=== PATIENT | male | born 1965 | race Caucasian/White ===

== ENCOUNTER 2016-08-12 17:18 | Emergency (ER) | payer SELFPAY ==
[~2016-08-12] VITALS: Ht 182.9 cm; Wt 100.0 kg
[~2016-08-12 17:18] MED LIST: ASPI81TA82 PO; CARB200T14 PO; LIDO5DIS35 TD; METO50TA PO; NITR.4 SL; NORV5TAB PO; RIVA20 PO
[2016-08-12 17:20] VITALS: BP 159/93; PULSE 96; RESP 12; TEMP 98.2; O2SAT 99
[2016-08-12] MEDS ORDERED: MUPI2%T TOPICAL (19:10)
[2016-08-12] MEDS ORDERED: BACT800T5 PO (19:10)
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
== END 2016-08-12 19:41 | disposition home or self-care (01) ==
LOC: NEPB 17:18
DX: S50.861A Insect bite (nonvenomous) of right forearm, initial encounter (principal); L03.113 Cellulitis of right upper limb; F17.210 Nicotine dependence, cigarettes, uncomplicated; I10 Essential (primary) hypertension; E78.00 Pure hypercholesterolemia, unspecified; J44.9 Chronic obstructive pulmonary disease, unspecified; I50.9 Heart failure, unspecified; W57.XXXA Bitten or stung by nonvenomous insect and other nonvenomous arthropods, initial encounter; Z79.01 Long term (current) use of anticoagulants
CPT/HCPCS: 99283

== ENCOUNTER 2016-08-19 13:26 | Inpatient (IN) | payer SELFPAY ==
[2016-08-19] VITALS (10 sets, daily range): BP systolic 111–131; BP diastolic 62–84; PULSE 75–123; RESP 20–26; TEMP 98–103.2; O2SAT 93–99
[~2016-08-19] VITALS: Ht 182.9 cm; Wt 115.9 kg
[~2016-08-19 13:26] MED LIST changes: -ASPI81TA82 PO; +BACT800T5 PO; -CARB200T14 PO; -LIDO5DIS35 TD; -METO50TA PO; +MUPI2%T TOPICAL; -NITR.4 SL; -NORV5TAB PO; -RIVA20 PO
[2016-08-19] MEDS ORDERED: SODIUM CHLOR 0.9% 1000 ML INJ 1,000 ML IV ONE ×3 (13:45→15:00)
[2016-08-19] MEDS ORDERED: AZTREONAM INJ 1,000 MG in SODIUM CHLORIDE 0.9% INJ 100 ML IV ONE (13:45)
[2016-08-19] MEDS ORDERED: SODIUM CHLORIDE 0.9% FLUSH 5 ML FLUSH IVF PRN (13:45)
[2016-08-19] MEDS ORDERED: VANCOMYCIN INJ 1,000 MG in SODIUM CHLOR 0.9% 250 ML INJ 250 ML IV ONE (13:45)
[2016-08-19 14:20] LABS: AUTOMATED NEUTROPHIL # 20.5 TH/MM3 (1.8-7.7); BASOPHIL # 0.1 TH/MM3 (0-0.2); BASOPHIL % 0.3 % (0.0-2.0); HEMATOCRIT 43.1 % (39.0-51.0); HEMO FLAGS DIFF FINAL; LYMPH % 5.6 % (9.0-44.0); LYMPHOCYTE # 1.3 TH/MM3 (1.0-4.8); MEAN CELL VOLUME 91.3 FL (80.0-100.0); MEAN CORPUSCULAR HEMOGLOBIN 31.6 PG (27.0-34.0); MEAN CORPUSCULAR HGB CONC 34.6 % (32.0-36.0); MONO % 5.2 % (0.0-8.0); NEUT % 88.9 % (16.0-70.0); PLATELET COUNT 198 TH/MM3 (150-450); RED BLOOD COUNT 4.72 MIL/MM3 (4.50-5.90); RED CELL DISTRIBUTION WIDTH 13.4 % (11.6-17.2)
[2016-08-19 14:27] LABS: APTT (PATIENT) 27.8 SEC (24.3-30.1); PROTHROMBIN TIME - PATIENT 11.1 SEC (9.8-11.6)
[2016-08-19 14:33] LABS: ANION GAP 7 MEQ/L (5-15); BICARBONATE 25.6 MEQ/L (21.0-32.0); BLOOD UREA NITROGEN 11 MG/DL (7-18); CHLORIDE 103 MEQ/L (98-107); GLOMERULAR FILTRATION RATE 61 ML/MIN (>89); MAGNESIUM 1.7 MG/DL (1.5-2.5); POTASSIUM 3.8 MEQ/L (3.5-5.1); SODIUM (NA) 136 MEQ/L (136-145)
--- NOTE | 2016-08-19 14:33 | RADRPT ---
EXAM DATE/TIME: 08/19/2016 13:45 [facility] COMPARISON: CHEST SINGLE AP, June 24, 2015, 16:07. INDICATIONS : Chest pain, cough and fever. MEDICAL HISTORY : None. SURGICAL HISTORY : None. ENCOUNTER: Initial ACUITY: 3 days PAIN SCORE: 8/10 LOCATION: Bilateral chest FINDINGS: A single view of the chest demonstrates the lungs to be symmetrically aerated without evidence of mas s, infiltrate or effusion. The cardiomediastinal contours are unremarkable. Osseous structures are intact. CONCLUSION: No acute disease. Corie Simon MD on August 19, 2016 at 14:32 Board Certified Radiologist. This report was verified electronically.
[2016-08-19 14:37] LABS: CREATINE KINASE 310 U/L (39-308)
[2016-08-19 14:49] LABS: CKMB LESS THAN 0.5 NG/ML (0.5-3.6)
[2016-08-19] MEDS ORDERED: ACETAMINOPHEN 325 MG TAB PO ONE (15:00)
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
[2016-08-19] MEDS ORDERED: ACETAMINOPHEN 325 MG TAB PO PRN (16:00)
[2016-08-19] MEDS ORDERED: NALOXONE HCL 0.4 MG/ML AMP IV PRN (16:00)
[2016-08-19] MEDS ORDERED: ONDANSETRON HCL 4 MG/2 ML VIAL IVP PRN (16:00)
[2016-08-19] MEDS ORDERED: SODIUM CHLORIDE 0.9% FLUSH 5 ML FLUSH FLUSH PRN (16:00)
[2016-08-19] MEDS ORDERED: RESP: ALBUTEROL 2.5 MG/3 ML NEB (PRN) INH (16:00)
[2016-08-19] MEDS ORDERED: DEXTROSE 50% IN WATER 50 ML VIAL(D50) IV PUSH PRN (16:15)
[2016-08-19] MEDS ORDERED: GLUCAGON 1 MG/ML VIAL OTHER PRN (16:15)
--- NOTE | 2016-08-19 16:15 | HHI.HP ---
[facility] Service Family Medicine Primary Care Physician No Primary Care Physician Admission Diagnosis Sepsis Diagnoses: Chief Complaint: chest pain International Travel<30 Days: No Contact w/Intl Traveler<30days: No Known Affected Area: No History of Present Illness Patient is a 50-year-old male with an apparent past medical history significant for CAD s/p stent, diverticulosis and gastric ulcer who presents today for chest pain. Patient states that he has been having chest pain for the past 2-3 days. The pain is progressively worsening. Located in the epigastric region nonradiating. It's a sharp, stabbing, constant pain. He has not been able to tolerate oral intake for the past 34 days. He states every time he tries to eat, he can't keep the food down. He has been able to keep liquids down. Eating makes his pain worse. He thinks that moving around might help the pain. Patient states he has had this pain before in the past and he was hospitalized for it but he is unsure what his diagnosis was. His last bowel movement was a couple days ago and runny. He denies any black or bloody stool. He endorses pain with deep inspiration and has had a productive cough that is a little worse than his baseline cough. He has had to cut down from smoking 1 pack per day to smoking half a pack per day due to this chest pain. He denies any alcohol or illicit drug use. Of note, he drinks 34 pots of coffee per day. Review of Systems Constitutional: COMPLAINS OF: Fever, Chills, Change in appetite Eyes: DENIES: Blurred vision Ears, nose, mouth, throat: DENIES: Throat pain Respiratory: COMPLAINS OF: Cough, Wheezing, Sputum production, Shortness of breath (occasional) Cardiovascular: COMPLAINS OF: Chest pain, DENIES: Syncope, Lower Extremity Edema, Orthopnea Gastrointestinal: COMPLAINS OF: Abdominal pain, Constipation, Nausea, Vomiting , DENIES: Black stools, Bloody stools Genitourinary: DENIES: Hematuria, Dysuria Musculoskeletal: DENIES: Back pain Integumentary: DENIES: Rash Hematologic/lymphatic: DENIES: Bruising Neurologic: COMPLAINS OF: Headache Psychiatric: COMPLAINS OF: Depression Past Family Social History Past Medical History CAD HLD HTN Hx of DVT Seizure disorder MDD Gastric Ulcer Diverticulosis Past Surgical History History limited as patient is poor historian. Per chart review: Coronary stent Joint Replacement Back surgery Reported Medications Reported Meds & Active Scripts Active Allergies: Coded Allergies: Aspirin (Verified Allergy, Severe, Anaphylaxis, 08/19/16) Bee Sting (Verified Allergy, Severe, Anaphylaxis, 08/19/16) Iodine (Verified Allergy, Severe, Anaphylaxis, 08/19/16) Penicillin (Verified Allergy, Severe, Anaphylaxis, 08/19/16) Phenobarbital (Verified Allergy, Severe, INCREASED SEIZURES, 08/19/16) Seafood (Verified Allergy, Severe, Anaphylaxis, 08/19/16) Active Ordered Medications Current Medications Medications (Trade) Dose Ordered Sig/Mikey Route Start Time Stop Time Status Last Admin IV Flush 2 ml 2 ml UNSCH PRN IVF 08/19/16 13:45 (NS 1000 ml Inj) 1,000 ml @ 160 mls/hr Q6H15M IV 08/19/16 15:51 UNV (NS Flush) 2 ml UNSCH PRN FLUSH 08/19/16 16:00 UNV (NS Flush) 2 ml BID FLUSH 08/19/16 21:00 UNV (Tylenol) 650 mg Q4H PRN PO 08/19/16 16:00 UNV (Zofran Inj) 4 mg Q6H PRN IVP 08/19/16 16:00 UNV (Narcan Inj) 0.4 mg UNSCH PRN IV 08/19/16 16:00 UNV (Protonix Inj) 40 mg DAILY IVP 08/19/16 16:00 UNV (D50w (Vial) Inj) 25 ml UNSCH PRN IV PUSH 08/19/16 16:15 UNV (Glucagon Inj) 1 mg UNSCH PRN OTHER 08/19/16 16:15 UNV Family History Patient is estranged from his family. Per chart review, his mother had stomach and brain cancer, father had heart disease and DM type 2, and son is healthy Social History Tobacco: smoked 1ppd x40 years, now smoking 1/2 ppd for past 2 weeks Alcohol: None Illicit Drug Use: None Lives in an apartment, cares for an 89 year old male. Spends time scavenging for scrap metal. Physical Exam Vital Signs Vital Signs Date Time Temp Pulse Resp B/P Pulse Ox O2 Delivery O2 Flow Rate FiO2 08/19/16 15:17 130/74 131/83 08/19/16 15:00 100.3 117 22 130/84 99 Nasal Cannula 2 08/19/16 13:43 99 Nasal Cannula 2 08/19/16 13:43 99 Nasal Cannula 2 08/19/16 13:39 99 Nasal Cannula 2 08/19/16 13:29 103.2 123 26 128/62 95 Physical Exam GENERAL: This is a well-nourished, well-developed obese male patient, who appears uncomfortable. Malodorous, unkempt. SKIN: Multiple abrasions and scattered lesions on upper and lower extremities. Nails are long and dirty. HEAD: Atraumatic. Normocephalic. No temporal or scalp tenderness. EYES: Pupils small but reactive to light. Extraocular motions intact. No scleral icterus. No injection or drainage. ENT: Nose without bleeding, purulent drainage or septal hematoma. Mucous membranes dry. Very poor dentition. NECK: Trachea midline. No JVD or lymphadenopathy. Supple, nontender, no meningeal signs. CARDIOVASCULAR: Tachycardic rate and regular rhythm without murmurs, gallops, or rubs. RESPIRATORY: Breath sounds equal bilaterally. Diffuse expiratory wheezes throughout lungs bilaterally. Bibasilar coarse breath sounds. Tachypnea. Becomes short of breath after a few words, however difficult to tell if this is from pain or increased respiratory effort. 98% on 2L NC. GASTROINTESTINAL: Abdomen firm, tender to palpation throughout abdomen, distended. Bowel sounds hypoactive. Unable to appreciate organomegaly or masses due to distention. No rebound tenderness. MUSCULOSKELETAL: Extremities without clubbing, cyanosis, or edema. No joint tenderness, effusion, or edema noted. No calf tenderness. NEUROLOGICAL: Awake but drowsy. Cranial nerves II through XII intact. Normal speech. Laboratory Laboratory Tests Test 08/19/16 14:00 White Blood Count 23.0 Red Blood Count 4.72 Hemoglobin 14.9 Hematocrit 43.1 Mean Corpuscular Volume 91.3 Mean Corpuscular Hemoglobin 31.6 Mean Corpuscular Hemoglobin 34.6 Concent Red Cell Distribution Width 13.4 Platelet Count 198 Mean Platelet Volume 9.8 Neutrophils (%) (Auto) 88.9 Lymphocytes (%) (Auto) 5.6 Monocytes (%) (Auto) 5.2 Eosinophils (%) (Auto) 0.0 Basophils (%) (Auto) 0.3 Neutrophils # (Auto) 20.5 Lymphocytes # (Auto) 1.3 Monocytes # (Auto) 1.2 Eosinophils # (Auto) 0.0 Basophils # (Auto) 0.1 CBC Comment DIFF FINAL Differential Comment Prothrombin Time 11.1 Prothromb Time International 1.0 Ratio Activated Partial 27.8 Thromboplast Time Sodium Level 136 Potassium Level 3.8 Chloride Level 103 Carbon Dioxide Level 25.6 Anion Gap 7 Blood Urea Nitrogen 11 Creatinine 1.24 Estimat Glomerular Filtration 61 Rate Random Glucose 109 Lactic Acid Level 1.9 Calcium Level 8.8 Magnesium Level 1.7 Total Creatine Kinase 310 Creatine Kinase MB LESS THAN 0.5 Creatine Kinase MB % 0.2 Troponin I LESS THAN 0.02 Date/Time Procedure Status Source Growth 08/19/16 14:05 Aerobic Blood Culture Received Blood Peripheral Pending 08/19/16 14:05 Anaerobic Blood Culture Received Blood Peripheral Pending Result Diagram: 08/19/16 1400 08/19/16 1400 Imaging Last Impressions Chest X-Ray 08/19/16 1340 Signed Impressions: Service Date/Time: Friday, August 19, 2016 13:45 - CONCLUSION: No acute disease. Corie Simon MD Septic Shock Reassessment Heart: Irregular Lungs: Course Skin: Warm, Dry Capillary Refill: Brisk Assessment and Plan Assessment and Plan Patient is a 50-year-old male with an apparent past medical history significant for CAD s/p stent, diverticulosis and gastric ulcer who presents today for chest pain and is admitted for SIRS, possibly sepsis with unknown source at this time. DDX includes pancreatitis versus GI perforation versus gastric ulcer versus [place] versus urosepsis versus cholecystitis versus diverticulitis versus pneumonia versus COPD exacerbation Code Status Full code Discussed Condition With dw Dr. Ledesma and Dr. Harrison Problem List: (1) SIRS (systemic inflammatory response syndrome) Status: Acute Plan: Febrile up to 103.2 Tachycardia up to 123 Tachypnea 26 O2 saturation 99% on 2L NC Leukocytosis of 23.0 CXR shows no acute disease PE significant for firm, distended, painful abdomen and coarse breath sounds and wheezing s/p 3L NS, Vancomycin 1g IV, and Aztreonam 1g IV in ED Plan: - UA - Abd/Pelvis CT- suspect GI source, will adjust antibiotics based on CT results. If GI source, will initiate Levaquin and Flagyl. - Tylenol PRN fever - Maintenance fluids with NS @ 160ml/hr - Blood cultures - UDS, alcohol level (2) Abdominal pain Status: Acute Plan: PE remarkable for diffuse abdominal pain and distention. Apparent history of Gastric ulcer and diverticulosis per chart review. Last BM several days ago Unable to tolerate PO Plan: - Abdomen/Pelvis CT - Protonix 40mg IV Daily - LFT's, lipase - Hemoccult - Trend cardiac enzymes/EKG to r/o Cardiac cause of pain - UA pending - Zofran PRN nausea - NPO (3) Emphysema/COPD Status: Chronic Plan: Patient is not on any home medications. Physical exam significant for coarse breath sounds at the bases and expiratory wheezing. Productive cough at baseline, however worsening recently. O2 sat 98-99% on 2L NC Plan: - Albuterol neb Q2H PRN - Duonebs Q4H - Pulse ox/supplemental O2 - Telemetry - Sputum Culture - Influenza A/B antigen - Bedside PFT - D-dimer to r/o PE - BNP - Symbicort Inh BID (4) Nutrition, metabolism, and development symptoms Status: Acute Plan: Fluids: NS @ 160ml/hr Electrolytes: wnl, continue to monitor and replete as needed Nutrition: NPO DVT PPx: SCD's, hold chemical anticoagulation until GI perforation is ruled out Low dose SSI Physician Certification 2 Midnight Certification Type: Admission for Inpatient Services Order for Inpatient Services The services are ordered in accordance with Medicare regulations or non- Medicare payer requirements, as applicable. In the case of services not specified as inpatient-only, they are appropriately provided as inpatient services in accordance with the 2-midnight benchmark. Estimated LOS (days): 3 days is the estimated time the patient will need to remain in the hospital, assuming treatment plan goals are met and no additional complications. Post-Hospital Plan: Home Problem Qualifiers (1) Abdominal pain: Qualified Code: R10.84 - Generalized abdominal pain (2) Emphysema/COPD: Qualified Code: J43.9 - Pulmonary emphysema, unspecified emphysema type Jennifer Hong MD R2 Aug 19, 2016 16:15
[2016-08-19] MEDS: PANTOPRAZOLE SODIUM 40 MG VIAL IVP SCH (16:19)
[2016-08-19] MEDS: SODIUM CHLOR 0.9% 1000 ML INJ 1,000 ML IV SCH ×2 (16:19→20:59)
[2016-08-19] MEDS ORDERED: IBUPROFEN 600 MG TAB PO ONE (16:30)
[2016-08-19 16:37] LABS: BLOOD, URINE NEG (NEG); COMMENT (UR) CULT NOT INDICATED; CULTURE IF INDICATED CULT NOT INDICATED; GLUCOSE,URINE NEG (NEG); KETONE, URINE NEG (NEG); MUCUS URINE FEW /lpf (OCC); NITRITE,URINE NEG (NEG); PH, URINE 7.5 (5.0-8.5); URINE COLOR YELLOW (YELLW/STRAW)
[2016-08-19] MEDS: RESP: ALBUTEROL 2.5 MG/IPRATROPIUM 0.5 MG NEB (SCH) INH ×3 (17:26→23:37)
[2016-08-19] MEDS ORDERED: DIATRIZOATE MEGLUM/DIATRIZOATE SOD 9 ML CUP ONE (17:51)
[2016-08-19 19:11] LABS: INDIRECT BILIRUBIN 0.6 MG/DL (0.0-0.8); TOTAL BILIRUBIN ADULT 0.7 MG/DL (0.2-1.0)
[2016-08-19 19:16] LABS: AMPHETAMINE, URINE NEG (NEG); BARBITURATES, URINE NEG (NEG); COCAINE, URINE NEG (NEG)
--- NOTE | 2016-08-19 19:42 | RADRPT ---
EXAM DATE/TIME: 08/19/2016 19:13 [facility] COMPARISON: No previous studies available for comparison. INDICATIONS : Left upper pain,eating makes the pain worse,nausea,vomiting. ORAL CONTRAST: Partial prescribed oral contrast ingested. RADIATION DOSE: 21.93 CTDIvol (mGy) MEDICAL HISTORY : Ulcers. Hernia, inguinal. Chronic obstructive pulmonary disease.Testicular cancer SURGICAL HISTORY : Coronary artery stent. ENCOUNTER: Initial ACUITY: 3 days PAIN SCALE: 8/10 LOCATION: Abdomen TECHNIQUE: Volumetric scanning of the abdomen and pelvis was performed. Using automated exposure control and ad justment of the mA and/or kV according to patient size, radiation dose was kept as low as reasonably achievable to obtain optimal diagnostic quality images. FINDINGS: LOWER LUNGS: The visualized lower lungs are clear. LIVER: Decreased attenuation without lesion. There is no dilation of the biliary tree. No calcified gallst ones. SPLEEN: Normal size without lesion. PANCREAS: Within normal limits. KIDNEYS: Normal in size and shape. There is no mass, stone, or hydronephrosis. ADRENAL GLANDS: Within normal limits. VASCULAR: There is no aortic aneurysm. Inferior vena cava filter noted below the level the renal veins. BOWEL/MESENTERY: The stomach, small bowel, and colon demonstrate no acute abnormality. There is no free intraperitone al air or fluid. ABDOMINAL WALL: Within normal limits. RETROPERITONEUM: There is no lymphadenopathy. BLADDER: No wall thickening or mass. REPRODUCTIVE: Within normal limits. INGUINAL: There is no lymphadenopathy or hernia. MUSCULOSKELETAL: Screws traverse the left hip. CONCLUSION: 1. Hepatic steatosis. 2. No acute inflammatory process. 3. No renal calculi or hydronephrosis. Brody Starks MD on August 19, 2016 at 19:38 Board Certified Radiologist. This report was verified electronically.
[2016-08-19] MEDS: SODIUM CHLORIDE 0.9% FLUSH 5 ML FLUSH FLUSH SCH (20:59)
[2016-08-19] MEDS: BUDESONIDE-FORMOTEROL 160/4.5 MCG INHALER INH SCH (20:59)
[2016-08-19] MEDS ORDERED: CHLORHEXIDINE GLUCONATE 2 % 1 PACK (2 CLOTHS)(extra cloths) TOP PRN (21:00)
[2016-08-19] MEDS: INSULIN ASPART SUPPLEMENTAL SCALE SQ SCH (21:00)
[2016-08-19] MEDS ORDERED: ENOXAPARIN SODIUM 40 MG/0.4 ML SYRINGE SQ SCH (21:00)
[2016-08-19 22:40] LABS: CREATINE KINASE 320 U/L (39-308)
[2016-08-19 22:52] LABS: CKMB LESS THAN 0.5 NG/ML (0.5-3.6)
[2016-08-20] VITALS (8 sets, daily range): BP systolic 124–147; BP diastolic 63–84; PULSE 77–102; RESP 21–37; TEMP 97.8–98.3; O2SAT 95–98
[2016-08-20 02:22] LABS: BASOPHIL % 0.3 % (0.0-2.0); EOSINOPHIL % 0.2 % (0.0-4.0); HEMATOCRIT 40.4 % (39.0-51.0); HEMO FLAGS DIFF FINAL; LYMPH % 8.7 % (9.0-44.0); LYMPHOCYTE # 1.2 TH/MM3 (1.0-4.8); MEAN CELL VOLUME 93.8 FL (80.0-100.0); MEAN CORPUSCULAR HEMOGLOBIN 31.1 PG (27.0-34.0); MEAN CORPUSCULAR HGB CONC 33.2 % (32.0-36.0); MONO % 8.2 % (0.0-8.0); NEUT % 82.6 % (16.0-70.0); PLATELET COUNT 165 TH/MM3 (150-450); RED BLOOD COUNT 4.31 MIL/MM3 (4.50-5.90); RED CELL DISTRIBUTION WIDTH 13.7 % (11.6-17.2); WHITE BLOOD COUNT 13.3 TH/MM3 (4.0-11.0)
[2016-08-20 02:48] LABS: ALKALINE PHOSPHATASE 53 U/L (45-117); ALT (GPT) 22 U/L (12-78); ANION GAP 6 MEQ/L (5-15); AST (GOT) 10 U/L (15-37); BICARBONATE 26.7 MEQ/L (21.0-32.0); BLOOD UREA NITROGEN 10 MG/DL (7-18); CHLORIDE 109 MEQ/L (98-107); CREATINE KINASE 297 U/L (39-308); GLOMERULAR FILTRATION RATE 77 ML/MIN (>89); POTASSIUM 3.5 MEQ/L (3.5-5.1); SODIUM (NA) 142 MEQ/L (136-145); TOTAL BILIRUBIN ADULT 0.6 MG/DL (0.2-1.0)
[2016-08-20] MEDS ORDERED: CHLORHEXIDINE GLUCONATE 2 % 1 PACK (2 CLOTHS)(taper/protocol) TOP SCH (04:00)
[2016-08-20] MEDS: RESP: ALBUTEROL 2.5 MG/IPRATROPIUM 0.5 MG NEB (SCH) INH ×2 (04:17→08:08)
[2016-08-20] MEDS: SODIUM CHLOR 0.9% 1000 ML INJ 1,000 ML IV SCH (04:21)
[2016-08-20] MEDS: INSULIN ASPART SUPPLEMENTAL SCALE SQ SCH ×2 (06:32→11:00)
[2016-08-20] MEDS: BUDESONIDE-FORMOTEROL 160/4.5 MCG INHALER INH SCH (08:32)
[2016-08-20] MEDS: PANTOPRAZOLE SODIUM 40 MG VIAL IVP SCH (08:33)
[2016-08-20] MEDS: SODIUM CHLORIDE 0.9% FLUSH 5 ML FLUSH FLUSH SCH (08:33)
[2016-08-20] MEDS ORDERED: LEVOFLOXACIN 750 MG TAB PO SCH (11:00)
[2016-08-20] MEDS ORDERED: MUPIROCIN 2% OINT 1 APPLIC/GM SYR NASAL SCH (12:00)
--- NOTE | 2016-08-20 14:29 | HHI.FPPN ---
Subjective Remarks Overnight, ERNEI. AFVSS. Breathing well on 2L NC. MRSA swab returned positive- contact precautions taken. Transferred to unit yesterday after met criteria for septic shock. Significantly improved today, will transfer to floor. Pt c/o being in hospital, would like to leave hospital. Fever and chest pain resolved. Difficulty breathing has returned to baseline SOB secondary emphysema (Irene Harrison MD R1) Objective Vitals Vital Signs Date Time Temp Pulse Resp B/P Pulse Ox O2 Delivery O2 Flow Rate FiO2 08/20/16 10:00 88 08/20/16 08:09 96 Nasal Cannula 2.00 08/20/16 08:00 78 08/20/16 08:00 98.1 78 21 147/84 97 08/20/16 06:00 82 08/20/16 04:00 77 08/20/16 04:00 98.3 102 37 138/63 98 08/20/16 02:00 77 08/20/16 00:00 80 08/20/16 00:00 98.2 80 21 124/69 97 08/19/16 22:00 75 08/19/16 20:52 98 Nasal Cannula 2.00 08/19/16 20:03 98.0 83 20 118/69 97 08/19/16 20:00 80 08/19/16 17:30 98.4 96 20 115/62 93 Nasal Cannula 2 08/19/16 15:30 102.0 123 20 111/71 98 Nasal Cannula 2 08/19/16 15:17 130/74 131/83 08/19/16 15:00 100.3 117 22 130/84 99 Nasal Cannula 2 I/O 08/19/16 08/19/16 08/19/16 08/20/16 08/20/16 08/20/16 07:00 15:00 23:00 07:00 15:00 23:00 Intake Total 1233 ml Output Total 1450 ml Balance -217 ml Intake IV Total 1233 ml Output Urine Total 1450 ml (Irene Harrison MD R1) Result Diagram: 08/20/1615708/20/16 0158 Imaging Last Impressions Chest X-Ray 08/19/16 1340 Signed Impressions: Service Date/Time: Friday, August 19, 2016 13:45 - CONCLUSION: No acute disease. Corie Simon MD Abdomen/Pelvis CT 08/19/16 0000 Signed Impressions: Service Date/Time: Friday, August 19, 2016 19:13 - CONCLUSION: 1. Hepatic steatosis. 2. No acute inflammatory process. 3. No renal calculi or hydronephrosis. Brody Starks MD Objective Remarks CONST: Obese male, mildly agitated. Friend in room and at door. Malodorous, unkempt. DERM: Multiple circular scabbed abrasions/lesions on upper and lower extremities. Nails long, dirty. HEENT: EOMI. Poor dentition. CV: Tachycardic rhythm. No murmurs. RESP: Diffuse expiratory wheezes b/l. Speaks in full sentences GI: Soft, NTND. +BS MSK: No peripheral edema/calf tenderness. NEURO: No gross motor or sensory deficits. PSYCH: Appears agitated. Talking quickly. Friend in room bouncing leg up and down rapidly and loudly. (Irene Harrison MD R1) A/P Assessment and Plan 50y male with CAD s/p CABG, diverticulosis, gastric ulcer, tobacco use, and significant caffeine use (4 pots coffee/day) hospitalized 08/19/16 for sepsis and chest pain. Discharge Planning 1-3 days, pending further workup of SIRS source and weaning from O2 supplementation. SDW: Dr. Ledesma, Dr. Byrne, Dr. Simms (Irene Harrison MD R1) Attending Attestation Patient seen and examined. Case reviewed and discussed with the resident team, Dr Byrne, Dr Simms, Dr Harrison and Dr Serna. Agree with plan of care as discussed with me and documented in the resident note (Law Ledesma MD) Problem List: (1) SIRS (systemic inflammatory response syndrome) Status: Acute Plan: On admission, ddx pancreatitis vs GI perforation vs gastric ulcer vs MD vs urosepsis vs cholecystitis vs diverticulitis vs pneumonia vs COPD exacerbation Despite concerning vitals/labs on admission (febrile to 103.2, Leukocytosis t23k , tachypnea, tachycardia) workup for source has been surprisingly negative. ACS workup, CXR, CT abdomen/pelvis, LFTs, electrolytes, lipase, U/A, EtOH level grossly wnl. D-dimer slightly elevated 0.57. In context of generalized inflammatory state, hx COPD, and improving respiratory status, concern for PE low, VQ scan not pursued. Plan MIVF as below Blood cultures pending Treat for COPD exacerbation (see below) (2) COPD exacerbation Status: Acute Plan: Improving. CXR, Influenza A/B, BNP wnl - Start Levaquin PO (08/20- ) - Start Prednisone 40mg BID (08/20- ) - Symbicort BID, PRN Duonebs, PRN albuterol - Pulse ox/supplemental O2, telemetry - Sputum Culture pending - Bedside PFT pending (3) Abdominal pain Status: Acute Plan: PE +abdominal pain and distention. Hx gastric ulcer, diverticulosis, drinks several pots of coffee/day. Last BM days ago. Not tolerate PO. -Protonix 40mg IV Daily -Zofran PRN nausea -Advance diet, as tolerated -See SIRS workup (4) Nutrition, metabolism, and development symptoms Status: Acute Plan: Fluids: MIVF: NS @ 160ml/hr Electrolytes: wnl, continue to monitor and replete as needed Nutrition: Regular diet, advance as tolerated DVT PPx: SCD's, hold chemical anticoagulation until GI perforation is ruled out GI: protonix for gastritis (Irene Harrison MD R1) Problem Qualifiers (1) Abdominal pain: Qualified Code: R10.84 - Generalized abdominal pain Irene Harrison MD R1 Aug 20, 2016 14:29 Law Ledesma MD Aug 21, 2016 14:35
--- NOTE | 2016-08-20 17:08 | PD.AMA ---
Against Medical Advice Note Diagnosis: (1) Sepsis (2) COPD exacerbation (3) SIRS (systemic inflammatory response syndrome) (4) Positive nasal culture for methicillin resistant Staphylococcus aureus Discharge Disposition: Against Medical Advice Pt Condition on Discharge: Guarded Recommended Treatment Course 50y male with CAD s/p CABG, diverticulosis, gastric ulcer, tobacco use, and significant caffeine use (4 pots coffee/day) hospitalized 08/19/16 for sepsis and chest pain. Discharge Planning Recommended 1-3 days, pending further workup of SIRS source and weaning from O2 supplementation. (1) SIRS (systemic inflammatory response syndrome) On admission, ddx pancreatitis vs GI perforation vs gastric ulcer vs [place] vs urosepsis vs cholecystitis vs diverticulitis vs pneumonia vs COPD exacerbation Despite concerning vitals/labs on admission (febrile to 103.2, Leukocytosis t23k , tachypnea, tachycardia) workup for source has been surprisingly negative. ACS workup, CXR, CT abdomen/pelvis, LFTs, electrolytes, lipase, U/A, EtOH level grossly wnl. D-dimer slightly elevated 0.57. In context of generalized inflammatory state, hx COPD, and improving respiratory status, concern for PE low, VQ scan not pursued. Plan MIVF Follow Blood cultures Treat for COPD exacerbation (see below) (2) COPD exacerbation Improving. CXR, Influenza A/B, BNP wnl - Continue PO Levaquin x10-14 days (08/20- ) - PO prednisone x5 days (08/20- ) - Symbicort BID, PRN Duonebs, PRN albuterol- discharge pt with these meds- no home meds - Follow Sputum Culture - Obtain Bedside PFT (3) Abdominal pain PE +abdominal pain and distention. Hx gastric ulcer, diverticulosis, drinks several pots of coffee/day. Last BM days ago. Not tolerate PO. -Discharge with PPI x12 weeks (4) MRSA+ -Hibaclens + Bactrim for ears AMA Statement Patient Hayes Nugent has decided to leave the hospital against medical advice. This patient has the capacity to refuse care and understands the risks of leaving, including permanent disability and/or , and has had an opportunity to ask questions about his condition. The patient has been informed that he may return for care at any time, and follow up has been arranged/advised. Irene Harrison MD R1 Aug 20, 2016 17:08
[2016-08-20] MEDS ORDERED: predniSONE 20 MG TAB PO SCH (21:00)
--- NOTE | 2016-08-20 21:07 | EKG ---
Date Performed: 08/19/2016 Time Performed: 19:52:33 PTAGE: 50 years EKG: Sinus rhythm WITH FIRST DEGREE AV BLOCK LEFT VENTRICULAR HYPERTROPHY AND ST-T CHANGE ABNORMAL ECG PREVIOUS TRACING : 08/19/2016 16.35 DOCTOR: El Middleton Interpretating Date/Time 08/20/2016 21:03:16
--- NOTE | 2016-08-20 21:14 | EKG ---
Date Performed: 08/19/2016 Time Performed: 16:35:30 PTAGE: 50 years EKG: Sinus rhythm POSSIBLE LEFT ATRIAL ENLARGEMENT BORDERLINE ECG PREVIOUS TRACING : 08/19/2016 12.29 DOCTOR: El Middleton Interpretating Date/Time 08/20/2016 21:06:34
--- NOTE | 2016-08-20 21:23 | EKG ---
Date Performed: 08/19/2016 Time Performed: 12:29:55 PTAGE: 50 years EKG: SINUS TACHYCARDIA ST ELEVATION, PROBABLY EARLY REPOLARIZATION ABNORMAL RHYTHM ECG PREVIOUS TRACING : 06/24/2015 15.03 DOCTOR: El Middleton Interpretating Date/Time 08/20/2016 21:11:30
--- NOTE | 2016-08-24 07:53 | EKG ---
Date Performed: 08/19/2016 Time Performed: 21:06:43 PTAGE: 50 years EKG: Sinus rhythm WITH FIRST DEGREE AV BLOCK POSSIBLE LEFT ATRIAL ENLARGEMENT INCOMPLETE RIGHT BUNDLE BRANCH BLOCK POS SIBLE INFERIOR MYOCARDIAL INFARCTION , PROBABLY OLD ABNORMAL ECG PREVIOUS TRACING : 08/19/2016 19.52 DOCTOR: El Middleton Interpretating Date/Time 08/24/2016 07:53:29
== END 2016-08-20 14:40 | disposition left against medical advice (07) | DRG 871 ==
LOC: NEPE 13:26 → NEDA 15:22 → HIME 19:30 → HIMW 08-20 04:30
PROVIDERS: ADMIT Family Medicine; ATTEND Family Medicine
DX: A41.9 Sepsis, unspecified organism (principal); R65.21 Severe sepsis with septic shock; I11.0 Hypertensive heart disease with heart failure; J44.1 Chronic obstructive pulmonary disease with (acute) exacerbation; I50.9 Heart failure, unspecified; I25.10 Atherosclerotic heart disease of native coronary artery without angina pectoris; J45.909 Unspecified asthma, uncomplicated; I25.2 Old myocardial infarction; G40.909 Epilepsy, unspecified, not intractable, without status epilepticus; K29.70 Gastritis, unspecified, without bleeding; S40.861A Insect bite (nonvenomous) of right upper arm, initial encounter; W57.XXXA Bitten or stung by nonvenomous insect and other nonvenomous arthropods, initial encounter; E78.5 Hyperlipidemia, unspecified; H91.91 Unspecified hearing loss, right ear; F17.210 Nicotine dependence, cigarettes, uncomplicated; F32.9 Major depressive disorder, single episode, unspecified; Z22.322 Carrier or suspected carrier of Methicillin resistant Staphylococcus aureus; Z79.1 Long term (current) use of non-steroidal anti-inflammatories (NSAID); Z86.718 Personal history of other venous thrombosis and embolism; Z86.73 Personal history of transient ischemic attack (TIA), and cerebral infarction without residual deficits; Z88.0 Allergy status to penicillin; Z88.6 Allergy status to analgesic agent; Z91.030 Bee allergy status; Z91.013 Allergy to seafood; Z95.5 Presence of coronary angioplasty implant and graft
CPT/HCPCS: 71010; 74176; 80048; 80053; 80076; 80307; 80320; 81001; 82550; 82552; 82948; 83605; 83690; 83735; 83880; 84484; 85025; 85379; 85610; 85730; 87040; 87641; 87804; 93005; 94150; 94640; 96374; 96375; C9113; J1650; J3370; J7030; J7050; J7613; Q9963

== ENCOUNTER 2016-11-28 23:53 | Observation (INO) | payer OTHER ==
[~2016-11-28] VITALS: Ht 182.9 cm; Wt 116.0 kg
[2016-11-28 04:35] VITALS: PULSE 73
[2016-11-28 23:55] VITALS: BP 171/94; PULSE 94; RESP 16; TEMP 98; O2SAT 98
[2016-11-29] VITALS (9 sets, daily range): BP systolic 99–155; BP diastolic 66–94; PULSE 72–91; RESP 16–22; TEMP 97.4–97.7; O2SAT 94–100
--- NOTE | 2016-11-29 00:38 | RADRPT ---
EXAM DATE/TIME: 11/29/2016 00:19 [facility] COMPARISON: CHEST SINGLE AP, August 19, 2016, 13:45. INDICATIONS : Chest pain. MEDICAL HISTORY : None. SURGICAL HISTORY : None. ENCOUNTER: Initial ACUITY: 1 day PAIN SCORE: 6/10 LOCATION: Bilateral chest FINDINGS: No infiltrate, effusion or pneumothorax demonstrated. Heart size stable, upper limits of normal. Thor acic aorta is mildly tortuous. CONCLUSION: No acute cardiopulmonary disease demonstrated. Rachid Fleming MD on November 29, 2016 at 0:36 Board Certified Radiologist. This report was verified electronically.
[2016-11-29 00:50] LABS: AUTOMATED NEUTROPHIL # 5.1 TH/MM3 (1.8-7.7); BASOPHIL # 0.1 TH/MM3 (0-0.2); EOSINOPHIL # 0.2 TH/MM3 (0-0.4); EOSINOPHIL % 1.7 % (0.0-4.0); HEMATOCRIT 45.5 % (39.0-51.0); HEMO FLAGS DIFF FINAL; LYMPH % 30.5 % (9.0-44.0); LYMPHOCYTE # 2.7 TH/MM3 (1.0-4.8); MEAN CELL VOLUME 92.1 FL (80.0-100.0); MEAN CORPUSCULAR HEMOGLOBIN 31.7 PG (27.0-34.0); MEAN CORPUSCULAR HGB CONC 34.4 % (32.0-36.0); MONO % 10.2 % (0.0-8.0); NEUT % 56.6 % (16.0-70.0); PLATELET COUNT 177 TH/MM3 (150-450); RED BLOOD COUNT 4.94 MIL/MM3 (4.50-5.90); RED CELL DISTRIBUTION WIDTH 13.7 % (11.6-17.2)
[2016-11-29] MEDS: SODIUM CHLOR 0.9% 1000 ML INJ 1,000 ML IV SCH ×2 (00:56→10:30)
[2016-11-29] MEDS: NITROGLYCERIN 0.4 MG SL 25 TABS/BTL SL PRN ×2 (00:57→01:10)
[2016-11-29 01:03] LABS: APTT (PATIENT) 27.3 SEC (24.3-30.1)
[2016-11-29 01:16] LABS: ANION GAP 6 MEQ/L (5-15); BICARBONATE 28.4 MEQ/L (21.0-32.0); BLOOD UREA NITROGEN 12 MG/DL (7-18); CHLORIDE 108 MEQ/L (98-107); CREATINE KINASE 122 U/L (39-308); GLOMERULAR FILTRATION RATE 71 ML/MIN (>89); POTASSIUM 4.1 MEQ/L (3.5-5.1); SODIUM (NA) 142 MEQ/L (136-145)
[2016-11-29 01:29] LABS: CKMB LESS THAN 0.5 NG/ML (0.5-3.6)
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
[2016-11-29] MEDS ORDERED: NITROGLYCERIN 0.4 MG SL 25 TABS/BTL SL PRN (03:00)
[2016-11-29] MEDS ORDERED: ONDANSETRON HCL 4 MG/2 ML VIAL IV PRN (03:00)
[2016-11-29] MEDS ORDERED: SODIUM CHLORIDE 0.9% FLUSH 10 ML FLUSH PRN (03:00)
[2016-11-29] MEDS ORDERED: SODIUM CHLORIDE 0.9% FLUSH 10 ML FLUSH IVF PRN (03:00)
[2016-11-29 03:35] LABS: PROTHROMBIN TIME - PATIENT 10.6 SEC (9.8-11.6)
[2016-11-29 04:16] LABS: CREATINE KINASE 68 U/L (39-308)
[2016-11-29 07:11] LABS: CREATINE KINASE 62 U/L (39-308)
[2016-11-29] MEDS ORDERED: SODIUM CHLORIDE 0.9% FLUSH 10 ML FLUSH SCH (09:00)
[2016-11-29] MEDS ORDERED: SODIUM CHLORIDE 0.9% FLUSH 10 ML FLUSH IV FLUSH SCH (09:00)
[2016-11-29] MEDS ORDERED: RESP: ALBUTEROL 2.5 MG/IPRATROPIUM 0.5 MG NEB (PRN) INH (09:30)
[2016-11-29] MEDS ORDERED: RESP: ALBUTEROL 2.5 MG/IPRATROPIUM 0.5 MG NEB (SCH) INH ONE (09:30)
[2016-11-29] MEDS ORDERED: LISINOPRIL 10 MG TAB PO SCH (10:00)
[2016-11-29] MEDS ORDERED: LORazepam 0.5 MG TAB PO ONE (11:00)
--- NOTE | 2016-11-29 11:11 | HHI.HP ---
HPI Primary Care Physician Katharine Olivares MD Chief Complaint Chest pain History of Present Illness This is a 51-year-old male that states has history of CAD with stenting in 2011 that presents with a complaint of a chest discomfort as been constantly there for over 3 days. He has been short of breath and diaphoretic no nausea. Were symptoms were about 7 out of 10. Currently symptoms are to attend. He's found that certain stressors seem to worsen the symptoms. He states that his symptoms are not similar to how it felt when he needed stenting 2011. Denies recent illnesses. Denies fevers or chills. She's been out all his medications for the past month. Doesn't remember all the medications. He can recall lisinopril and he believes pravastatin. Patient continues to smoke cigarettes. Review of Systems General: Patient denies fevers, chills recent, and recent travel HEENT: Patient denies headache, sore throat, difficulty swallowing. Cardiovascular: Has the chest discomfort as mentioned above. Denies sensation of heart beating rapidly or irregularly. No syncope. There was diaphoresis. Respiratory: He was short of breath. Denies inspirational chest discomfort. Denies coughing wheezing or hemoptysis. GI: Patient denies nausea, vomiting, diarrhea, abdominal pain, bloody stools. Musculoskeletal: Patient denies joint pain or edema. Denies calf pain or edema. Neurovascular: Patient denies numbness, tingling, weakness in extremities. Denies headache. Endocrine: Denies polyuria and polydipsia. Hematologic: Denies easy bruising. Skin: Denies rash or itching. Past Family Social History Allergies: Coded Allergies: Aspirin (Verified Allergy, Severe, Anaphylaxis, 11/29/16) Bee Sting (Verified Allergy, Severe, Anaphylaxis, 11/29/16) Iodine (Verified Allergy, Severe, Anaphylaxis, 11/29/16) Penicillin (Verified Allergy, Severe, Anaphylaxis, 11/29/16) Phenobarbital (Verified Allergy, Severe, INCREASED SEIZURES, 11/29/16) Seafood (Verified Allergy, Severe, Anaphylaxis, 11/29/16) *MDRO Multi-Drug Resistant Organism (Verified Adverse Reaction, Unknown, MRSA, 11/29/16) MRSA PCR screen POSITIVE - 08/19/16 Past Medical History Stated history of CAD with stenting in 2011. Hyperlipidemia, hypertension, DVT in 2012 and has a [place] filter. Seizure disorder and states last seizure was about 6 months agoG, gastric ulcer, diverticulitis. [facility] for sepsis August this year but left AMA. Past Surgical History Cardiac catheterization 2 with stenting 2. IVC filter. Left hip. Reported Medications Reported Meds & Active Scripts Active No Active Prescriptions or Reported Medications Active Ordered Medications Current Medications Medications (Trade) Dose Ordered Sig/Mikey Route Start Time Stop Time Status Last Admin (NS 1000 ml Inj) 1,000 ml @ 100 mls/hr Q10H IV 11/29/16 00:30 11/29/16 00:56 (NS Flush) 2 ml UNSCH PRN .XX 11/29/16 03:00 (NS Flush) 2 ml BID .XX 11/29/16 09:00 (Zofran Inj) 4 mg Q6H PRN IV 11/29/16 03:00 (Nitrostat Sl) 0.4 mg Q5M PRN SL 11/29/16 03:00 (Prinivil) 10 mg DAILY PO 11/29/16 10:00 11/29/16 10:31 Family History His father had CAD. Social History Patient continues smoke. He is smoking a 1 1/2 packs a day for last 3 years but prior that he smoked about 3 packs a day for 35 years. He denies alcohol or illicit drugs. Physical Exam Vital Signs Vital Signs Date Time Temp Pulse Resp B/P Pulse Ox O2 Delivery O2 Flow Rate FiO2 11/29/16 08:48 97.6 72 16 145/94 95 11/29/16 05:00 97.4 87 20 99/66 100 11/29/16 04:35 73 11/29/16 03:02 96 11/29/16 02:34 75 20 147/81 96 Room Air 11/29/16 01:05 22 94 Nasal Cannula 2 11/29/16 01:04 94 Nasal Cannula 2 11/29/16 00:53 80 22 125/84 94 Room Air 11/29/16 00:05 91 22 155/88 96 Room Air 11/28/16 23:55 98.0 94 16 171/94 98 Physical Exam GENERAL: This is a well-nourished, well-developed patient, in no apparent distress. Patient speaks in clear complete sentences. Patient is pleasant. HEENT: Head is atraumatic and normocephalic. Neck is supple without lymphadenopathy and trachea is midline. No JVD or carotid bruits. CARDIOVASCULAR: Regular rate and rhythm without murmurs, gallops, or rubs. RESPIRATORY: Clear to auscultation. Breath sounds equal bilaterally. No wheezes , rales, or rhonchi. Chest wall is nontender. No use of accessory muscles. GASTROINTESTINAL: Abdomen is nontender, nondistended. Abdomen soft. No obvious pulsatile mass or bruit. No CVA tenderness. Strong femoral pulses bilaterally. Normal bowel sounds in all quadrants. MUSCULOSKELETAL: Patient is moving upper and lower extremities freely. No calf tenderness or edema, no Homans sign. Strong pulses in upper and lower extremities. NEUROLOGICAL: Patient is alert and oriented. Cranial nerves 2-12 are grossly intact. No focal deficits and speech is clear. SKIN: No rash and turgor is normal. Laboratory Laboratory Tests Test 11/29/16 11/29/16 11/29/16 00:25 03:30 06:05 White Blood Count 9.0 Red Blood Count 4.94 Hemoglobin 15.6 Hematocrit 45.5 Mean Corpuscular Volume 92.1 Mean Corpuscular Hemoglobin 31.7 Mean Corpuscular Hemoglobin 34.4 Concent Red Cell Distribution Width 13.7 Platelet Count 177 Mean Platelet Volume 10.1 Neutrophils (%) (Auto) 56.6 Lymphocytes (%) (Auto) 30.5 Monocytes (%) (Auto) 10.2 Eosinophils (%) (Auto) 1.7 Basophils (%) (Auto) 1.0 Neutrophils # (Auto) 5.1 Lymphocytes # (Auto) 2.7 Monocytes # (Auto) 0.9 Eosinophils # (Auto) 0.2 Basophils # (Auto) 0.1 CBC Comment DIFF FINAL Differential Comment Prothrombin Time 10.6 Prothromb Time International 1.0 Ratio Activated Partial 27.3 Thromboplast Time Sodium Level 142 Potassium Level 4.1 Chloride Level 108 Carbon Dioxide Level 28.4 Anion Gap 6 Blood Urea Nitrogen 12 Creatinine 1.09 Estimat Glomerular Filtration 71 Rate Random Glucose 93 Calcium Level 9.1 Total Creatine Kinase 122 68 62 Creatine Kinase MB LESS THAN 0.5 Troponin I LESS THAN 0.02 LESS THAN 0.02 LESS THAN 0.02 Result Diagram: 11/29/16 0025 11/29/16 002 Imaging Last Impressions Chest X-Ray 11/29/16 002 Signed Impressions: Service Date/Time: Tuesday, November 29, 2016 00:19 - CONCLUSION: No acute cardiopulmonary disease demonstrated. Rachid Fleming MD Course EKGs have sinus rhythm with first degree AV block. No significant ST segment depressions or elevations. Assessment and Plan Assessment and Plan * Chest pain: Patient states he has CAD with stents. He has had serial cardiac enzymes and EKGs for ruling out purposes and will be seen by Dr. Alfaro in the chest pain center. He will undergo a Lexiscan myocardial perfusion stress test and be discharged if the stress test were to be nonischemic. * CAD: This will be reassessed for stress testing. * Hyperlipidemia: Will likely restart pravastatin. * Hypertension: Will start lisinopril. We'll discuss beta prudence with Dr. Alfaro as he is wheezing quite a bit and might not be able to use a beta prudence. * Tobacco abuse: Patient has been counseled on the importance of smoking cessation. Patient is stable this time. Is agreeable to this plan. Maico Smith Nov 29, 2016 11:11
[2016-11-29] MEDS ORDERED: REGADENOSON INJ 0.4 MG/5 ML SYR ONE (12:03)
--- NOTE | 2016-11-29 12:07 | EKG ---
Date Performed: 11/29/2016 Time Performed: 00:06:53 PTAGE: 51 years EKG: Sinus rhythm WITH FIRST DEGREE AV BLOCK LEFT ATRIAL ENLARGEMENT BORDERLINE LEFT AXIS DEVIATION INCOMPLETE RIGHT B UNDLE BRANCH BLOCK LEFT ANTERIOR FASICULAR BLOCK ABNORMAL ECG NO PREVIOUS TRACING DOCTOR: Obie Alfaro Interpretating Date/Time 11/29/2016 12:05:30
--- NOTE | 2016-11-29 12:13 | EKG ---
Date Performed: 11/29/2016 Time Performed: 03:27:42 PTAGE: 51 years EKG: Sinus rhythm WITH SINUS ARRHYTHMIA & FIRST DEGREE AV BLOCK POSSIBLE LEFT ATRIAL ENLARGEMENT BORDERLINE LEFT AXIS DEVIATION INCOMPLETE RIGHT BUNDLE BRANCH BLOCK LEFT ANTERIOR FASICULAR BLOCK ABNORMAL ECG PREVIOUS TRACING : 08/19/2016 21.06 DOCTOR: Obie Alfaro Interpretating Date/Time 11/29/2016 12:11:20
--- NOTE | 2016-11-29 12:15 | EKG ---
Date Performed: 11/29/2016 Time Performed: 06:15:09 PTAGE: 51 years EKG: Sinus rhythm WITH FIRST DEGREE AV BLOCK POSSIBLE LEFT ATRIAL ENLARGEMENT LEFT AXIS DEVIATION INCOMPLETE RIGHT BUN DLE BRANCH BLOCK LEFT ANTERIOR FASICULAR BLOCK ABNORMAL ECG NO PREVIOUS TRACING DOCTOR: Obie Alfaro Interpretating Date/Time 11/29/2016 12:14:30
--- NOTE | 2016-11-29 13:17 | RADRPT ---
EXAM DATE/TIME: 11/29/2016 11:31 [facility] COMPARISON: No previous studies available for comparison. INDICATIONS : Chest pain for two days. Angina. Congestive heart failure. DOSE: 35 mCi Tc99m Myoview at stress. 11 mCi Tc99m Myoview at rest. 0.4 mg Lexiscan STRESS SYMPTOMS: Upper chest tightness. EJECTION FRACTION: 65% MEDICAL HISTORY : Chronic obstructive pulmonary disease. Myocardial infarction. Cardiovascular disease Smoker. SURGICAL HISTORY : Coronary artery stent. Left leg surgery. ENCOUNTER: Initial ACUITY: 2 days PAIN SCALE: 3/10 LOCATION: Bilateral chest TECHNIQUE: The patient underwent pharmacologic stress with infusion of prescribed dose. Continuous ECG tracing was monitored during stress. Gated SPECT imaging was performed after stress and conventional SPECT i maging was performed at rest. The examination was performed on a SPECT/CT scanner, both attenuation and non-corrected datasets were reviewed. FINDINGS: DISTRIBUTION: The maximum perfused segment at stress is in the lateral wall. PERFUSION STUDY: The pattern of perfusion at stress is within normal limits. GATED STUDY: There is intact wall motion and thickening without hypokinetic or dyskinetic segments. CONCLUSION: No reversible perfusion defects. Wall motion within normal limits. RISK CATEGORY: 1-Low Risk Michael Caal MD on November 29, 2016 at 13:13 Board Certified Radiologist. This report was verified electronically.
--- NOTE | 2016-11-29 14:27 | TR ---
Date Performed: 11/29/2016 Time Performed: 12:17:21 DOCTOR: Obie Alfaro DRUG LIST: CLINICAL HISTORY: CHESS REASON FOR TEST: REASON FOR ENDING: OBSERVATION: CONCLUSION: Lexiscan stress test was performed under standard four minute protocol. Radionuclide was injected one minute prior to ending the test. The patient was asymptomatic, blood pressure was m ildly elevated. No electrocardiographic abnormalities were present to suggest ischemia. Recovery was quick and uneventful, blood pressure remained elevated. Nuclear imaging and interpretation are lucio g. COMMENTS:
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
[2016-11-29] MEDS ORDERED: LISI10TA3 PO (16:44)
[2016-11-29] MEDS ORDERED: VENTAER INH (16:44)
[2016-11-29] MEDS ORDERED: PRAV40TA2 PO (16:44)
[2016-11-29] MEDS ORDERED: ASPI1TAB69 PO (16:45)
== END 2016-11-29 18:03 | disposition home or self-care (01) ==
LOC: NEPC 23:53 → NEDA 11-29 02:59 → NEPFCDU 11-29 03:48
PROVIDERS: ADMIT Family Medicine; ATTEND Family Medicine
DX: R07.89 Other chest pain (principal); I25.10 Atherosclerotic heart disease of native coronary artery without angina pectoris; E78.5 Hyperlipidemia, unspecified; I11.0 Hypertensive heart disease with heart failure; I50.9 Heart failure, unspecified; J44.9 Chronic obstructive pulmonary disease, unspecified; E78.00 Pure hypercholesterolemia, unspecified; I25.2 Old myocardial infarction; H91.90 Unspecified hearing loss, unspecified ear; F31.9 Bipolar disorder, unspecified; G40.909 Epilepsy, unspecified, not intractable, without status epilepticus; F41.9 Anxiety disorder, unspecified; F17.200 Nicotine dependence, unspecified, uncomplicated; Z96.651 Presence of right artificial knee joint; Z88.8 Allergy status to other drugs, medicaments and biological substances; Z88.6 Allergy status to analgesic agent; Z91.030 Bee allergy status; Z87.01 Personal history of pneumonia (recurrent); Z88.0 Allergy status to penicillin; Z91.013 Allergy to seafood; Z79.82 Long term (current) use of aspirin; Z86.718 Personal history of other venous thrombosis and embolism; Z86.73 Personal history of transient ischemic attack (TIA), and cerebral infarction without residual deficits; Z95.5 Presence of coronary angioplasty implant and graft; Z91.19 Patient's noncompliance with other medical treatment and regimen
CPT/HCPCS: 71010; 78452; 80048; 82550; 82552; 84484; 85025; 85610; 85730; 93005; 93017; 94664; 96360; 96361; 99285; A9502; G0378; J2785; J7030

== ENCOUNTER 2017-03-03 10:44 | Inpatient (IN) | payer OTHER ==
[~2017-03-03] VITALS: Ht 182.9 cm; Wt 120.0 kg
[~2017-03-03 10:44] MED LIST changes: +ASPI1TAB69 PO; -BACT800T5 PO; +LISI10TA3 PO; -MUPI2%T TOPICAL; +PRAV40TA2 PO; +VENTAER INH
[2017-03-03 10:48] VITALS: BP 151/70; PULSE 107; RESP 16; TEMP 98.3; O2SAT 98
--- NOTE | 2017-03-03 10:55 | PD ---
Physical Exam Time Seen by Provider: 10:52 Narrative 51yo M c/o "leakage" from his testicles w/ associated swelling, itching, and pain x 8 days. Has hx of similar symptoms for past few years but has been able to control it w/ OTC medications. Denies fever, vomiting, abd pain. Patient seen in triage. VS reviewed. Patient awaiting medical bed. Data Data Last Documented VS Vital Signs Date Time Temp Pulse Resp B/P Pulse Ox O2 Delivery O2 Flow Rate FiO2 03/03/17 10:48 98.3 107 16 151/70 98 MDM Supervised Visit with KAMARI: Cecily [place] Mar 03, 2017 10:55
[2017-03-03] MEDS ORDERED: MORPHINE SULFATE 4 MG/ML INJ IV PUSH ONE (13:45)
[2017-03-03 13:50] VITALS: BP 137/76; PULSE 111; RESP 16; TEMP 98.6; O2SAT 98
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
[2017-03-03 14:20] LABS: AUTOMATED NEUTROPHIL # 19.4 TH/MM3 (1.8-7.7); BASOPHIL % 0.2 % (0.0-2.0); EOSINOPHIL # 0.1 TH/MM3 (0-0.4); EOSINOPHIL % 0.6 % (0.0-4.0); HEMATOCRIT 43.8 % (39.0-51.0); HEMO FLAGS DIFF FINAL; LYMPH % 4.2 % (9.0-44.0); LYMPHOCYTE # 0.9 TH/MM3 (1.0-4.8); MEAN CELL VOLUME 94.7 FL (80.0-100.0); MEAN CORPUSCULAR HEMOGLOBIN 31.7 PG (27.0-34.0); MEAN CORPUSCULAR HGB CONC 33.5 % (32.0-36.0); MONO % 4.5 % (0.0-8.0); NEUT % 90.5 % (16.0-70.0); PLATELET COUNT 175 TH/MM3 (150-450); RED BLOOD COUNT 4.63 MIL/MM3 (4.50-5.90); RED CELL DISTRIBUTION WIDTH 13.6 % (11.6-17.2); WHITE BLOOD COUNT 21.4 TH/MM3 (4.0-11.0)
[2017-03-03 14:51] LABS: ALT (GPT) 31 U/L (12-78)
[2017-03-03 14:53] LABS: ALKALINE PHOSPHATASE 63 U/L (45-117); TOTAL BILIRUBIN ADULT 0.5 MG/DL (0.2-1.0)
--- NOTE | 2017-03-03 14:56 | RADRPT ---
EXAM DATE/TIME: 03/03/2017 14:19 [facility] COMPARISON: CT ABDOMEN & PELVIS W/O CONTRAST, March 07, 2015, 5:08. CT ABDOMEN & PELVIS W/O CONTRAST, August 022016, 19:13. INDICATIONS : Testicular pain and swelling. ORAL CONTRAST: No oral contrast ingested. RADIATION DOSE: 16.68 CTDIvol (mGy) MEDICAL HISTORY : Cardiovascular disease. Carcinoma, testicular. Hypertension. SURGICAL HISTORY : IVC Filter placement. ENCOUNTER: Initial ACUITY: 2 days PAIN SCALE: 4/10 LOCATION: Bilateral testicles. TECHNIQUE: Volumetric scanning of the abdomen and pelvis was performed. Using automated exposure control and ad justment of the mA and/or kV according to patient size, radiation dose was kept as low as reasonably achievable to obtain optimal diagnostic quality images. DICOM format image data is available electro nically for review and comparison. FINDINGS: LOWER LUNGS: There is a 6 mm granuloma involving the right lung base. This is long-term stable. LIVER: The liver is diffusely low in attenuation. Focal fatty sparing adjacent to the gallbladder fossa. No discrete mass or ductal dilatation. Gallbladder is unremarkable. SPLEEN: Normal size without lesion. PANCREAS: Within normal limits. KIDNEYS: Normal in size and shape. There is no mass, stone, or hydronephrosis. ADRENAL GLANDS: Within normal limits. VASCULAR: There is no aortic aneurysm. An IVC filter noted. BOWEL/MESENTERY: The stomach, small bowel, and colon demonstrate no acute abnormality. There is no free intraperitone al air or fluid. ABDOMINAL WALL: Within normal limits. RETROPERITONEUM: There is no lymphadenopathy. BLADDER: No wall thickening or mass. REPRODUCTIVE: Within normal limits. INGUINAL: Small lymph nodes are seen within the left groin. The largest measures 2.8 x 1.6 cm. It does contain a fatty hilar structure. Small bilateral hydroceles partially seen. MUSCULOSKELETAL: 3 femoral neck screws are seen on the left. CONCLUSION: 1. No acute abnormality. 2. Bilateral hydroceles partially seen. 3. Adenopathy involving the left groin is asymmetric. I see no retroperitoneal adenopathy. 4. 6 mm granuloma within the right lung base. 5. Hepatic steatosis. Nehemiah Ordoñez Jr., MD on March 03, 2017 at 14:41 Board Certified Radiologist. This report was verified electronically.
[2017-03-03 15:00] LABS: ANION GAP 7 MEQ/L (5-15); AST (GOT) 19 U/L (15-37); BICARBONATE 27.9 MEQ/L (21.0-32.0); BLOOD UREA NITROGEN 8 MG/DL (7-18); CHLORIDE 105 MEQ/L (98-107); GLOMERULAR FILTRATION RATE 78 ML/MIN (>89); SODIUM (NA) 140 MEQ/L (136-145)
[2017-03-03] MEDS ORDERED: VANCOMYCIN INJ 1,800 MG in SODIUM CHLORID 0.9% 500 ML INJ 500 ML IV ONE (15:00)
[2017-03-03 15:05] LABS: POTASSIUM 4.2 MEQ/L (3.5-5.1)
[2017-03-03] MEDS ORDERED: ACETAMINOPHEN 325 MG TAB PO PRN (15:45)
[2017-03-03] MEDS ORDERED: ONDANSETRON HCL 4 MG/2 ML VIAL IV PUSH PRN (15:45)
[2017-03-03] MEDS ORDERED: SODIUM CHLOR 0.9% 1000 ML INJ 1,000 ML IV ONE (15:45)
[2017-03-03 15:59] VITALS: BP 134/75; PULSE 122; RESP 16; O2SAT 98
[2017-03-03] MEDS ORDERED: KETOROLAC TROMETHAMINE 30 MG/ML (IVP) VIAL IV PUSH PRN (16:00)
[2017-03-03] MEDS ORDERED: ALBUTEROL SULFATE 90 MCG/ACT HFA 8 GM INHALER INH PRN (16:00)
[2017-03-03] MEDS ORDERED: ACETAMINOPHEN/HYDROcodone 325 MG/5 MG TAB PO PRN ×2 (16:00)
[2017-03-03] MEDS ORDERED: Vancomycin Consult Pharmacy 1 EA OTHER SCH (16:00)
[2017-03-03 16:09] LABS: BLOOD, URINE NEG (NEG); COMMENT (UR) CULT NOT INDICATED; CULTURE IF INDICATED CULT NOT INDICATED; GLUCOSE,URINE NEG (NEG); KETONE, URINE NEG (NEG); MUCUS URINE FEW /lpf (OCC); NITRITE,URINE NEG (NEG); URINE COLOR DARK-YELLOW (YELLW/STRAW)
--- NOTE | 2017-03-03 16:09 | HHI.HP ---
[facility] Service [facility] ([place], [place])ists Primary Care Physician Katharine Olivares MD Admission Diagnosis Sepsis secondary to cellulitis Diagnoses: (1) Sepsis Diagnosis: Principal (2) Cellulitis Diagnosis: Principal Chief Complaint: scrotal pain Travel History International Travel<30 Days: No Contact w/Intl Traveler <30 Da: No Traveled to Known Affected Are: No Sepsis Criteria SIRS Criteria (2 or more): Heart rate over 90, WBC > 62244, < 4000 or > 10% bands Sepsis Criteria (SIRS+source): Infect source susp/known Criteria Outcome: Meets sepsis criteria History of Present Illness patient is a 51 y/o male with history of hypertension who presented to ER with scrotal pain.he says that it started eight days ago and gradually got worse. he denies any fever, chills, night sweats or urinary complaints. he denies any abdominal pain but he says that he had some nausea and vomited last night. Review of Systems Constitutional: DENIES: Fever, Weight loss, Chills, Night Sweats Eyes: DENIES: Blurred vision, Diplopia, Vision loss, Double Vision Ears, nose, mouth, throat: DENIES: Tinnitus, Vertigo, Throat pain, Epistaxis Respiratory: DENIES: Apneas, Cough, Snoring, Wheezing, Hemoptysis, Sputum production, Shortness of breath Cardiovascular: DENIES: Chest pain, Palpitations, Syncope, Dyspnea on Exertion , PND, Lower Extremity Edema, Orthopnea, Claudication Gastrointestinal: DENIES: Abdominal pain, Black stools, Bloody stools, Constipation, Diarrhea, Nausea, Vomiting, Difficulty Swallowing, Anorexia Genitourinary: DENIES: Urinary frequency, Urgency, Hematuria, Dysuria Musculoskeletal: DENIES: Joint pain, Muscle aches, Stiffness, Joint Swelling Integumentary: DENIES: Rash Neurologic: DENIES: Abnormal gait, Headache, Localized weakness, Paresthesias, Seizures, Speech Problems, Tremor, Poor Balance Psychiatric: DENIES: Anxiety, Confusion, Mood changes, Depression, Hallucinations, Agitation, Suicidal Ideation, Homicidal Ideation, Delusions scrotal pain. Past Family Social History Past Medical History hypertension CAD dyslipidemia COPD Past Surgical History knee surgery tisha filter placement left groin Reported Medications Ventolin Hfa 18 GM Inh (Albuterol Sulfate) 90 Mcg/Act Aer 2 Puff INH Q4H PRN Pravastatin 40 Mg Tab 40 Mg PO DAILY Lisinopril 10 Mg Tab 10 Mg PO DAILY Allergies: Coded Allergies: Aspirin (Verified Allergy, Severe, Anaphylaxis, 11/29/16) Bee Sting (Verified Allergy, Severe, Anaphylaxis, 11/29/16) Iodine (Verified Allergy, Severe, Anaphylaxis, 11/29/16) Penicillin (Verified Allergy, Severe, Anaphylaxis, 11/29/16) Phenobarbital (Verified Allergy, Severe, INCREASED SEIZURES, 11/29/16) Seafood (Verified Allergy, Severe, Anaphylaxis, 11/29/16) *MDRO Multi-Drug Resistant Organism (Verified Adverse Reaction, Unknown, MRSA, 11/29/16) MRSA PCR screen POSITIVE - 08/19/16 Active Ordered Medications Current Medications Morphine Sulfate 4 mg 4 mg ONCE ONCE IV PUSH Last administered on 03/03/17 14: 07; Start 03/03/17 at 13:45; Stop 03/03/17 at 13:47; Status DC Vancomycin HCl 1800 mg/Sodium Chloride 518 ml @ 250 mls/hr ONCE ONCE IV Last administered on 03/03/17 15:35; Start 03/03/17 at 15:00; Stop 03/03/17 at 17:04 Sodium Chloride (NS 1000 ml Inj) 1,000 ml @ 999 mls/hr BOLUS ONCE IV Last administered on 03/03/17 16:01; Start 03/03/17 at 15:45; Stop 03/03/17 at 16:45 Acetaminophen (Tylenol) 650 mg Q4H PRN PO FEVER; Start 03/03/17 at 15:45 Ondansetron HCl (Zofran Inj) 4 mg Q8HR PRN IV PUSH NAUSEA; Start 03/03/17 at 15: 45 Albuterol Sulfate (Proair Hfa Inh) 2 puff Q4H PRN INH SHORTNESS OF BREATH; Start 03/03/17 at 16:00 Lisinopril (Prinivil) 10 mg DAILY PO ; Start 03/04/17 at 09:00 Pravastatin Sodium 40 mg 40 mg DAILY PO ; Start 03/04/17 at 09:00 Pharmacy Profile Note 0 ml @ 0 mls/hr UNSCH OTHER ; Start 03/03/17 at 16:00; Status UNV Piperacillin Sod/ Tazobactam Sod (Zosyn 3.375 Gm Premix) 50 ml @ 100 mls/hr Q6H IV ; Start 03/03/17 at 16:00; Status UNV Acetaminophen/ Hydrocodone Bitart ([place] 5-325 Mg) 1 tab Q4H PRN PO PAIN 1-5; Start 03/03/17 at 16:00; Status UNV Acetaminophen/ Hydrocodone Bitart ([place] 5-325 Mg) 2 tab Q4H PRN PO PAIN 6-10 ; Start 03/03/17 at 16:00; Status UNV Ketorolac Tromethamine (Toradol Inj) 15 mg Q6HR PRN IV PUSH BREAKTHROUGH PAIN; Start 03/03/17 at 16:00; Status UNV Family History diabetes in father. Social History smokes a pack a day- no drinking or illicit drug abuse. Physical Exam Vital Signs Vital Signs Date Time Temp Pulse Resp B/P Pulse Ox O2 Delivery O2 Flow Rate FiO2 03/03/17 13:50 98.6 111 16 137/76 98 03/03/17 10:48 98.3 107 16 151/70 98 Physical Exam GENERAL: This is a well-nourished, well-developed patient, in no apparent distress. SKIN: No rashes, ecchymoses or lesions. Cool and dry. HEAD: Atraumatic. Normocephalic. No temporal or scalp tenderness. EYES: Pupils equal round and reactive. Extraocular motions intact. No scleral icterus. No injection or drainage. ENT: Nose without bleeding, purulent drainage or septal hematoma. Throat without erythema, tonsillar hypertrophy or exudate. Uvula midline. Airway patent. NECK: Trachea midline. No JVD or lymphadenopathy. Supple, nontender, no meningeal signs. CARDIOVASCULAR: Regular rate and rhythm without murmurs, gallops, or rubs. RESPIRATORY: Clear to auscultation. Breath sounds equal bilaterally. No wheezes , rales, or rhonchi. GASTROINTESTINAL: Abdomen soft, non-tender, nondistended. No hepato-splenomegaly , or palpable masses. No guarding. genitalia; scrotal erythema,warmth and tenderness MUSCULOSKELETAL: Extremities without clubbing, cyanosis, or edema. No joint tenderness, effusion, or edema noted. No calf tenderness. Negative Homans sign bilaterally. NEUROLOGICAL: Awake and alert. Cranial nerves II through XII intact. Motor and sensory grossly within normal limits. Five out of 5 muscle strength in all muscle groups. Normal speech. Laboratory Laboratory Tests Test 03/03/17 14:05 White Blood Count 21.4 Red Blood Count 4.63 Hemoglobin 14.7 Hematocrit 43.8 Mean Corpuscular Volume 94.7 Mean Corpuscular Hemoglobin 31.7 Mean Corpuscular Hemoglobin 33.5 Concent Red Cell Distribution Width 13.6 Platelet Count 175 Mean Platelet Volume 8.9 Neutrophils (%) (Auto) 90.5 Lymphocytes (%) (Auto) 4.2 Monocytes (%) (Auto) 4.5 Eosinophils (%) (Auto) 0.6 Basophils (%) (Auto) 0.2 Neutrophils # (Auto) 19.4 Lymphocytes # (Auto) 0.9 Monocytes # (Auto) 1.0 Eosinophils # (Auto) 0.1 Basophils # (Auto) 0.0 CBC Comment DIFF FINAL Differential Comment Sodium Level 140 Potassium Level 4.2 Chloride Level 105 Carbon Dioxide Level 27.9 Anion Gap 7 Blood Urea Nitrogen 8 Creatinine 1.01 Estimat Glomerular Filtration 78 Rate Random Glucose 92 Calcium Level 8.9 Total Bilirubin 0.5 Aspartate Amino Transf 19 (AST/SGOT) Alanine Aminotransferase 31 (ALT/SGPT) Alkaline Phosphatase 63 Total Protein 7.5 Albumin 3.7 Date/Time Procedure Status Source Growth 03/03/17 15:25 Aerobic Blood Culture Received Blood Peripheral Pending 03/03/17 15:25 Anaerobic Blood Culture Received Blood Peripheral Pending Result Diagram: 03/03/17 1405 03/03/17 1405 Imaging Last Impressions Abdomen/Pelvis CT 03/03/17 0000 Signed Impressions: Service Date/Time: Friday, March 03, 2017 14:19 - CONCLUSION: 1. No acute abnormality. 2. Bilateral hydroceles partially seen. 3. Adenopathy involving the left groin is asymmetric. I see no retroperitoneal adenopathy. 4. 6 mm granuloma within the right lung base. 5. Hepatic steatosis. Nehemiah Ordoñez Jr., MD Assessment and Plan Assessment and Plan A/P - sepsis due to scrotal cellulitis continue with broad spectrum IV antibiotics- follow the cultures- scrotal sonogram and elevation consider ID and/or urology evaluation within the next 24-48 hrs if no improvement. continue with pain control -hypertension/ dyslipidemia/CAD/COPD- resume home meds -DVT prophylaxis with subq Lovenox Discussed Condition With ER physician and the patient. Physician Certification 2 Midnight Certification Type: Admission for Inpatient Services Order for Inpatient Services The services are ordered in accordance with Medicare regulations or non- Medicare payer requirements, as applicable. In the case of services not specified as inpatient-only, they are appropriately provided as inpatient services in accordance with the 2-midnight benchmark. Estimated LOS (days): 2 days is the estimated time the patient will need to remain in the hospital, assuming treatment plan goals are met and no additional complications. Post-Hospital Plan: Home Problem Qualifiers (1) Sepsis: Qualified Code: A41.9 - Sepsis, due to unspecified organism (2) Cellulitis: Qualified Code: L03.818 - Cellulitis of other specified site Dea Win MD Mar 03, 2017 16:09
--- NOTE | 2017-03-03 16:30 | RADRPT ---
EXAM DATE/TIME: 03/03/2017 15:52 [facility] COMPARISON: CHEST SINGLE AP, November 29, 2016, 0:19. INDICATIONS : Pain and weakness. MEDICAL HISTORY : Cardiovascular disease. Carcinoma, testicular. Hypertension. SURGICAL HISTORY : IVC Filter placement. ENCOUNTER: Initial ACUITY: 1 day PAIN SCORE: 10/10 LOCATION: Bilateral chest FINDINGS: Portable AP view of the chest demonstrates a normal-sized cardiac silhouette. No effusion, consolidat ion, or pneumothorax is visualized. The bones and soft tissues demonstrate no acute abnormality. CONCLUSION: No acute cardiopulmonary abnormality is identified. Rachid Waite MD on March 03, 2017 at 16:28 Board Certified Radiologist. This report was verified electronically.
--- NOTE | 2017-03-03 16:53 | RADRPT ---
EXAM DATE/TIME: 03/03/2017 16:19 [facility] COMPARISON: No previous studies available for comparison. INDICATIONS : Bilateral testicle pain and swelling. MEDICAL HISTORY : CVA. Epilepsy. CO. CHF. CAD. COPD. Hypertension. Hypercholesterol. SURGICAL HISTORY : Cardiac catheterization. Coronary stent. Right knee replacement. Hip surgery. [place] filter . ENCOUNTER: Initial ACUITY: 1 week PAIN SCORE: 10/10 LOCATION: Bilateral testicle. MEASUREMENTS: RIGHT TESTICLE: 4.5 x 3.0 x 2.7cm LEFT TESTICLE: 4.1 x 3.2 x 2.5cm FINDINGS: RIGHT TESTICLE: The right testicle is inhomogeneous. There is no hydrocele. The epididymis is prominent. LEFT TESTICLE: The left testicle hasn't similar inhomogeneous appearance. There is no focal mass. Prominent epidid ymal cysts are evident. SCROTUM: Marked scrotal thickening is evident. CONCLUSION: Abnormal echotexture to both testicles in a nonspecific fashion with symmetrical blood flow. I do n ot see discrete mass. Marked scrotal thickening is evident. Joni Kenney MD FACR on March 03, 2017 at 16:49 Board Certified Radiologist. This report was verified electronically.
[2017-03-03 16:57] VITALS: BP 143/72; PULSE 124; RESP 16; O2SAT 98
[2017-03-03] MEDS ORDERED: PIPERACIL-TAZO 3.375 GM PREMIX 50 ML IV SCH (17:00)
[2017-03-03] MEDS ORDERED: SODIUM CHLOR 0.9% 1000 ML INJ 1,000 ML IV SCH (17:00)
[2017-03-03] MEDS ORDERED: ENOXAPARIN SODIUM 40 MG/0.4 ML SYRINGE SQ SCH (17:00)
[2017-03-03 20:07] VITALS: BP 128/62
--- NOTE | 2017-03-03 20:56 | PD.AMA ---
Against Medical Advice Note Discharge Disposition: Against Medical Advice Pt Condition on Discharge: Fair AMA Statement Patient Hayes Nugent has decided to leave the hospital against medical advice. This patient has the capacity to refuse care and understands the risks of leaving, including permanent disability and/or , and has had an opportunity to ask questions about his condition. The patient has been informed that he may return for care at any time, and follow up has been arranged/advised. Patient is oriented x4 and wants to leave AMA because he does not want to spend the night in the hospital. He lives at the [facility] and his partner is here to pick him up. He verbalizes understanding of the risks of leaving with an infection. Instructed he may come back to the ER if needed. Veda Hines Mar 03, 2017 20:56
[2017-03-04] MEDS ORDERED: VANCOMYCIN 1,500 MG/NS 500 ML IV SCH ×2 (04:00)
[2017-03-04] MEDS ORDERED: LISINOPRIL 10 MG TAB PO SCH (09:00)
[2017-03-04] MEDS ORDERED: PRAVASTATIN SOD 40 MG TAB PO SCH (09:00)
--- NOTE | 2017-03-04 15:47 | EKG ---
Date Performed: 03/03/2017 Time Performed: 15:47:50 PTAGE: 51 years EKG: SINUS TACHYCARDIA ANTERIOR ST ELEVATION Ischemia, acute injury pattern is not excluded. Whe n compared to previous tracing, the patiejnt now has ST Elevation, concerning for an acute injury pat tern and is Tachycardic. Clinical corralation is suggested. ABNORMAL RHYTHM ECG PREVIOUS TRACING : 11/29/2016 06.15 DOCTOR: Keira Canseco Interpretating Date/Time 03/04/2017 15:47:04
[2017-03-05] MEDS ORDERED: PHARMACY ORDERED LAB ONE (03:45)
== END 2017-03-03 21:06 | disposition left against medical advice (07) | DRG 872 ==
LOC: NEPD 10:44 → NEDA 15:47 → N07B 21:05
PROVIDERS: ADMIT Internal Medicine; ATTEND Internal Medicine
DX: A41.9 Sepsis, unspecified organism (principal); I11.0 Hypertensive heart disease with heart failure; I25.10 Atherosclerotic heart disease of native coronary artery without angina pectoris; J44.9 Chronic obstructive pulmonary disease, unspecified; Z79.01 Long term (current) use of anticoagulants; I25.2 Old myocardial infarction; E78.00 Pure hypercholesterolemia, unspecified; N49.2 Inflammatory disorders of scrotum; H91.91 Unspecified hearing loss, right ear; G40.909 Epilepsy, unspecified, not intractable, without status epilepticus; N43.3 Hydrocele, unspecified; R59.0 Localized enlarged lymph nodes; E78.5 Hyperlipidemia, unspecified; F17.210 Nicotine dependence, cigarettes, uncomplicated; F31.9 Bipolar disorder, unspecified; F41.9 Anxiety disorder, unspecified; Z86.14 Personal history of Methicillin resistant Staphylococcus aureus infection; Z86.73 Personal history of transient ischemic attack (TIA), and cerebral infarction without residual deficits; Z88.0 Allergy status to penicillin; Z88.6 Allergy status to analgesic agent; Z91.013 Allergy to seafood; Z91.030 Bee allergy status; Z95.5 Presence of coronary angioplasty implant and graft; Z96.651 Presence of right artificial knee joint
CPT/HCPCS: 71010; 74176; 76870; 80053; 81001; 83605; 84484; 85025; 87040; 93005; 93975; J1650; J2270; J2543; J3370; J7030; J7040

== ENCOUNTER → 2017-03-16 | Outpatient (CLI) | payer OTHER ==
[~2017-03-16] MED LIST changes: +AMLO5TAB2 PO; -ASPI1TAB69 PO; +CLIN1CAP5 PO; +FURO1TAB62 PO; +IBUP-232 PO
[2017-03-16 07:17] LABS: AUTOMATED NEUTROPHIL # 3.9 TH/MM3 (1.8-7.7); BASOPHIL % 0.7 % (0.0-2.0); EOSINOPHIL # 0.1 TH/MM3 (0-0.4); EOSINOPHIL % 2.2 % (0.0-4.0); HEMATOCRIT 42.7 % (39.0-51.0); HEMO FLAGS DIFF FINAL; LYMPH % 25.3 % (9.0-44.0); LYMPHOCYTE # 1.6 TH/MM3 (1.0-4.8); MEAN CELL VOLUME 95.1 FL (80.0-100.0); MEAN CORPUSCULAR HEMOGLOBIN 31.8 PG (27.0-34.0); MEAN CORPUSCULAR HGB CONC 33.5 % (32.0-36.0); MONO % 10.6 % (0.0-8.0); NEUT % 61.2 % (16.0-70.0); PLATELET COUNT 260 TH/MM3 (150-450); RED BLOOD COUNT 4.49 MIL/MM3 (4.50-5.90); RED CELL DISTRIBUTION WIDTH 13.4 % (11.6-17.2); WHITE BLOOD COUNT 6.4 TH/MM3 (4.0-11.0)
[2017-03-16 07:41] LABS: ALT (GPT) 31 U/L (12-78); ANION GAP 8 MEQ/L (5-15); AST (GOT) 15 U/L (15-37); BICARBONATE 27.4 MEQ/L (21.0-32.0); BLOOD UREA NITROGEN 8 MG/DL (7-18); CHLORIDE 108 MEQ/L (98-107); GLOMERULAR FILTRATION RATE 77 ML/MIN (>89); GLUCOSE,FASTING 90 MG/DL (74-99); POTASSIUM 3.9 MEQ/L (3.5-5.1); SODIUM (NA) 143 MEQ/L (136-145)
[2017-03-16 07:50] LABS: ALKALINE PHOSPHATASE 52 U/L (45-117); HDL CHOLESTEROL 31.3 MG/DL (40.0-60.0); LDL CHOLESTEROL 144 MG/DL (0-99); TOTAL BILIRUBIN ADULT 0.4 MG/DL (0.2-1.0)
== END ==
LOC: CLAB 06:55
PROVIDERS: ATTEND Family Medicine
DX: J43.9 Emphysema, unspecified (principal); E78.5 Hyperlipidemia, unspecified; I10 Essential (primary) hypertension; R56.9 Unspecified convulsions; Z91.19 Patient's noncompliance with other medical treatment and regimen
CPT/HCPCS: 36415; 80053; 80061; 84443; 85025

== ENCOUNTER 2017-04-03 12:15 | Emergency (ER) | payer OTHER ==
[~2017-04-03] VITALS: Ht 180.3 cm; Wt 112.0 kg
[~2017-04-03 12:15] MED LIST changes: -CLIN1CAP5 PO; -FURO1TAB62 PO; -IBUP-232 PO
[2017-04-03 12:17] VITALS: BP 146/82; PULSE 86; RESP 14; TEMP 98.2; O2SAT 99
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
[2017-04-03 13:02] VITALS: RESP 16; O2SAT 98
[2017-04-03 13:28] LABS: AUTOMATED NEUTROPHIL # 4.8 TH/MM3 (1.8-7.7); BASOPHIL # 0.1 TH/MM3 (0-0.2); BASOPHIL % 0.7 % (0.0-2.0); EOSINOPHIL # 0.1 TH/MM3 (0-0.4); EOSINOPHIL % 1.9 % (0.0-4.0); HEMATOCRIT 41.1 % (39.0-51.0); HEMO FLAGS DIFF FINAL; LYMPH % 26.2 % (9.0-44.0); MEAN CELL VOLUME 93.8 FL (80.0-100.0); MEAN CORPUSCULAR HEMOGLOBIN 32.8 PG (27.0-34.0); MEAN CORPUSCULAR HGB CONC 34.9 % (32.0-36.0); NEUT % 61.2 % (16.0-70.0); PLATELET COUNT 153 TH/MM3 (150-450); RED BLOOD COUNT 4.38 MIL/MM3 (4.50-5.90); WHITE BLOOD COUNT 7.8 TH/MM3 (4.0-11.0)
[2017-04-03 13:36] LABS: APTT (PATIENT) 26.4 SEC (24.3-30.1); PROTHROMBIN TIME - PATIENT 10.8 SEC (9.8-11.6)
[2017-04-03 13:44] LABS: ALKALINE PHOSPHATASE 55 U/L (45-117); TOTAL BILIRUBIN ADULT 0.4 MG/DL (0.2-1.0)
[2017-04-03 13:46] LABS: ALT (GPT) 28 U/L (12-78); ANION GAP 7 MEQ/L (5-15); AST (GOT) 13 U/L (15-37); BICARBONATE 27.2 MEQ/L (21.0-32.0); BLOOD UREA NITROGEN 11 MG/DL (7-18); CHLORIDE 107 MEQ/L (98-107); GLOMERULAR FILTRATION RATE 97 ML/MIN (>89); SODIUM (NA) 141 MEQ/L (136-145)
[2017-04-03] MEDS ORDERED: IBUP-232 PO (14:23)
[2017-04-03] MEDS ORDERED: CLIN1CAP5 PO (14:23)
[2017-04-03 14:51] LABS: BLOOD, URINE NEG (NEG); COMMENT (UR) CULT NOT INDICATED; CULTURE IF INDICATED CULT NOT INDICATED; GLUCOSE,URINE NEG (NEG); KETONE, URINE NEG (NEG); MUCUS URINE FEW /lpf (OCC); NITRITE,URINE NEG (NEG); URINE COLOR YELLOW (YELLW/STRAW)
[2017-04-28] MEDS ORDERED: AMLO5TAB2 PO (07:32)
[2017-05-05] MEDS ORDERED: AMLO5TAB2 PO (10:57)
[2017-05-05] MEDS ORDERED: LISI10TA3 PO (10:57)
[2017-05-05] MEDS ORDERED: PRAV40TA2 PO (10:57)
[2017-05-05] MEDS ORDERED: FURO1TAB62 PO (10:57)
[2017-05-05] MEDS ORDERED: VENTAER INH (10:57)
== END 2017-04-03 14:34 | disposition home or self-care (01) ==
LOC: NEPD 12:15
DX: N50.89 Other specified disorders of the male genital organs (principal); L03.818 Cellulitis of other sites; F17.200 Nicotine dependence, unspecified, uncomplicated; I50.9 Heart failure, unspecified; Z79.899 Other long term (current) drug therapy
CPT/HCPCS: 80053; 81001; 85025; 85610; 85652; 85730; 86140; 99283

== ENCOUNTER 2017-07-09 14:23 | Emergency (ER) | payer SELFPAY ==
[~2017-07-09] VITALS: Ht 182.9 cm; Wt 113.5 kg
[~2017-07-09 14:23] MED LIST changes: +FURO1TAB62 PO
[2017-07-09 14:24] VITALS: BP 132/69; PULSE 121; RESP 22; TEMP 103.1; O2SAT 96
[2017-07-09] MEDS ORDERED: ACETAMINOPHEN 325 MG TAB PO ONE (15:00)
[2017-07-09 15:28] VITALS: TEMP 101.5
[2017-07-09 15:48] VITALS: BP 116/69; PULSE 100; PULSE 93; RESP 18; TEMP 99.9; O2SAT 96
[2017-07-09] MEDS ORDERED: AZIT500T2 PO (16:13)
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
== END 2017-07-09 16:22 | disposition home or self-care (01) ==
LOC: NEPD 14:23
DX: H66.91 Otitis media, unspecified, right ear (principal); I10 Essential (primary) hypertension; R56.9 Unspecified convulsions; J44.9 Chronic obstructive pulmonary disease, unspecified; F31.9 Bipolar disorder, unspecified; E78.00 Pure hypercholesterolemia, unspecified; I11.0 Hypertensive heart disease with heart failure; I50.9 Heart failure, unspecified; G40.909 Epilepsy, unspecified, not intractable, without status epilepticus
CPT/HCPCS: 99283

== ENCOUNTER 2017-07-20 08:42 | Emergency (ER) | payer SELFPAY ==
[~2017-07-20] VITALS: Ht 182.9 cm; Wt 120.0 kg
[~2017-07-20 08:42] MED LIST changes: +AZIT500T2 PO
[2017-07-20 08:43] VITALS: BP 144/83; PULSE 84; RESP 18; TEMP 97.7; O2SAT 96
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
[2017-07-20] MEDS ORDERED: NEOMYCIN/POLYMYXIN/HYDROCORT OTIC SOLN 10 ML BTL RIGHT EAR SCH (12:00)
== END 2017-07-20 10:04 | disposition home or self-care (01) ==
LOC: NEPK 08:42
DX: H60.501 Unspecified acute noninfective otitis externa, right ear (principal); E78.00 Pure hypercholesterolemia, unspecified; I11.0 Hypertensive heart disease with heart failure; I50.9 Heart failure, unspecified; J44.9 Chronic obstructive pulmonary disease, unspecified; F17.200 Nicotine dependence, unspecified, uncomplicated
CPT/HCPCS: 99283

== ENCOUNTER 2017-08-17 13:01 | Emergency (ER) | payer SELFPAY ==
[~2017-08-17 13:01] MED LIST changes: -AZIT500T2 PO
[2017-08-17 13:02] VITALS: BP 130/80; PULSE 115; RESP 18; TEMP 98.7; O2SAT 96
--- NOTE | 2017-08-17 13:57 | RADRPT ---
EXAM DATE/TIME: 08/17/2017 13:32 [place] COMPARISON: CHEST SINGLE AP, November 29, 2016, 0:19. CHEST SINGLE AP, March 03, 2017, 15:52. INDICATIONS : Flu symptoms for 3 weeks, chest pain and left side weakness for one hour, ear pain, lethargic MEDICAL HISTORY : Chronic obstructive pulmonary disease. Congestive heart failure. Myocardial infarction. CVD, epil epsy, hypertension, smoker, CVA SURGICAL HISTORY : Coronary artery stent. [place] vena cava filter, knee and leg surgery ENCOUNTER: Initial ACUITY: 3 weeks PAIN SCORE: 10/10 LOCATION: Bilateral chest FINDINGS: Frontal and lateral views the chest demonstrate normal-sized cardiac silhouette. No effusion, consoli dation, or pneumothorax is identified. There is mild interstitial prominence bilaterally. Bones and s oft tissues demonstrate no acute finding. CONCLUSION: Mild lower lung zone interstitial prominence bilaterally. No focal airspace consolidation/pneumonia i s visualized. Rachid Waite MD on August 17, 2017 at 13:52 Board Certified Radiologist. This report was verified electronically.
[2017-08-17 14:24] LABS: AUTOMATED NEUTROPHIL # 14.5 TH/MM3 (1.8-7.7); BASOPHIL % 0.2 % (0.0-2.0); EOSINOPHIL % 0.1 % (0.0-4.0); HEMATOCRIT 44.2 % (39.0-51.0); HEMOGLOBIN 14.9 GM/DL (13.0-17.0); LYMPH % 5.1 % (9.0-44.0); LYMPHOCYTE # 0.8 TH/MM3 (1.0-4.8); MEAN CELL VOLUME 94.8 FL (80.0-100.0); MEAN CORPUSCULAR HGB CONC 33.8 % (32.0-36.0); MEAN PLATELET VOLUME 9.8 FL (7.0-11.0); MONO % 6.3 % (0.0-8.0); NEUT % 88.3 % (16.0-70.0); PLATELET COUNT 167 TH/MM3 (150-450); RED BLOOD COUNT 4.67 MIL/MM3 (4.50-5.90); RED CELL DISTRIBUTION WIDTH 13.5 % (11.6-17.2); WHITE BLOOD COUNT 16.4 TH/MM3 (4.0-11.0)
[2017-08-17 14:34] LABS: INTERNATIONAL NORMALIZED RATIO 1.1 RATIO; PROTHROMBIN TIME - PATIENT 10.8 SEC (9.8-11.6)
[2017-08-17 14:45] LABS: ALBUMIN 3.9 GM/DL (3.4-5.0); AST (GOT) 17 U/L (15-37); BICARBONATE 23.8 MEQ/L (21.0-32.0); BLOOD UREA NITROGEN 11 MG/DL (7-18); CALCIUM 8.9 MG/DL (8.5-10.1); CHLORIDE 104 MEQ/L (98-107); CREATININE 0.87 MG/DL (0.60-1.30); GLOMERULAR FILTRATION RATE 92 ML/MIN (>89); GLUCOSE,RANDOM 89 MG/DL (74-106); LIPASE 101 U/L (73-393); SODIUM (NA) 137 MEQ/L (136-145)
[2017-08-17 14:46] LABS: ALT (GPT) 27 U/L (12-78)
[2017-08-17 14:48] LABS: ALKALINE PHOSPHATASE 71 U/L (45-117); TOTAL BILIRUBIN ADULT 0.7 MG/DL (0.2-1.0); TOTAL PROTEIN 7.8 GM/DL (6.4-8.2); TROPONIN I LESS THAN 0.02 NG/ML (0.02-0.05)
[2017-08-17 14:57] LABS: ACETAMINOPHEN LESS THAN 2.0 MCG/ML (10.0-30.0)
[2017-08-17] MEDS ORDERED: RESP: ALBUTEROL 2.5 MG/IPRATROPIUM 0.5 MG NEB (SCH) NEB ONE ×3 (17:00)
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
[2017-08-17] MEDS ORDERED: predniSONE 20 MG TAB PO ONE (17:15)
[2017-08-17] MEDS ORDERED: VENTAER INH (18:23)
[2017-08-17] MEDS ORDERED: PRED20 PO (18:23)
[2017-08-17] MEDS ORDERED: BACT800T5 PO (18:23)
[2017-08-17 18:41] VITALS: BP 135/82
--- NOTE | 2017-08-21 13:58 | EKG ---
Date Performed: 08/17/2017 Time Performed: 13:59:55 PTAGE: 51 years EKG: SINUS TACHYCARDIA LEFT ATRIAL ENLARGEMENT [-0.15 mV p WAVE IN V1/V2] ABNORMAL ECG Compared to PREVIOUS TRACING , previously seen anterior ST elevation has resolved. PREVIOUS TRACIN03/03/2017 15.47 DOCTOR: Wagner Rios Interpretating Date/Time 08/21/2017 13:58:11
== END 2017-08-17 18:46 | disposition home or self-care (01) ==
LOC: NEPE 13:01
DX: J44.1 Chronic obstructive pulmonary disease with (acute) exacerbation (principal); F17.210 Nicotine dependence, cigarettes, uncomplicated; E78.00 Pure hypercholesterolemia, unspecified; I11.0 Hypertensive heart disease with heart failure; I50.9 Heart failure, unspecified; I25.2 Old myocardial infarction; Z79.01 Long term (current) use of anticoagulants; Z79.899 Other long term (current) drug therapy
CPT/HCPCS: 71046; 80053; 80307; 82550; 83690; 83735; 84484; 85025; 85610; 85730; 87804; 93005; 94640; 94664; 99285; J7512

== ENCOUNTER 2018-09-21 11:34 | Inpatient (IN) ==
[2018-09-21] MEDS ORDERED: MethylPREDNISolone Sod Succinate Inj 125 MG/2 ML Vial IV.PUSH ONE (13:45)
--- NOTE | 2018-09-21 13:53 | ED ---
HPI General Chief Complaint: Respiratory Symptoms Stated Complaint: SOB Complaint Time Seen by Provider: 09/21/18 13:38 Source: patient Mode of arrival: ambulatory Limitations: no limitations History of Present Illness HPI Narrative: Patient is a 53-year-old male with history of hypertension, DVT, seizures, history of CVAs, presents to the emergency room with complaints of generalized weakness, subjective fevers and chills as well as shortness of breath. Patient reports that for the past 2-3 days, he has not been feeling well. Patient reports that he has had a dry cough, reports that he has been feeling short of breath. Patient endorses that he is a heavy smoker. Patient reports that he has also been having myalgias. He did not receive the flu vaccine this year. MD Complaint: Reports fever and cough Onset (ago): day(s) (2-3 days) Duration: constant Severity: moderate Severity scale (1-10): 5 Relieving factors: nothing Exacerbating factors: nothing Description of mucous: Reports clear Able to tolerate fluids by mouth: Yes Context: Denies sick contacts, recent travel and multiple patients with similar complaints Associated symptoms: Reports fever, chills, myalgias, cough and shortness of breath; Denies diaphoresis, stiff neck, chest pain, abdominal pain, nausea and vomiting Treatments prior to arrival: Reports none Related Data Home Medications Medication Instructions Recorded Confirmed divalproex [Depakote] 250 mg PO TID 30 Days #0 tab 02/17/18 09/21/18 furosemide 20 mg PO DAILY 02/17/18 09/21/18 lisinopril 40 mg PO DAILY 02/17/18 09/21/18 naproxen 375 mg PO BID 02/17/18 09/21/18 Previous Rx's Medication Instructions Recorded divalproex [Depakote] 250 mg PO TID #90 tab 08/09/18 Allergies Allergy/AdvReac Type Severity Reaction Status Date / Time aspirin Allergy Severe Anaphylaxis Verified 08/09/18 00:37 bee venom protein (honey bee) Allergy Severe Anaphylaxis Verified 08/09/18 00:37 Fish Containing Products Allergy Severe Anaphylaxis Verified 08/09/18 00:37 iodine Allergy Severe Anaphylaxis Verified 08/09/18 00:37 penicillin G Allergy Severe Anaphylaxis Verified 08/09/18 00:37 phenobarbital Allergy Severe INCREASED Verified 08/09/18 00:37 SEIZURES potassium iodide Allergy Severe Anaphylaxis Verified 08/09/18 00:37 povidone-iodine Allergy Severe Anaphylaxis Verified 08/09/18 00:37 sodium iodide Allergy Severe Anaphylaxis Verified 08/09/18 00:37 sodium iodide Allergy Severe Anaphylaxis Verified 08/09/18 00:37 *MDRO Multi-Drug Resistant AdvReac Unknown MRSA Uncoded 07/27/18 21:51 Organism Review of Systems ROS: all other systems reviewed are negative PMFSH History History Provided By: Patient Medical History Medical History DVT (deep venous thrombosis) (Acute) Heart attack (Acute) Hypertension (Acute) Seizures (Acute) Stroke (Acute) Surgical History Surgical History History of hip surgery (Acute) Social History Social History Substance History: No History of Abuse Second Hand Smoke Exposure: Yes Smoking Status: Current every day smoker Tobacco Type: Cigarettes How Often Do You Have a Drink Containing Alcohol: Never Recent Travel in [facility] within the Last 8 Weeks: No Recent Out of Country Travel within the Last 8 Weeks: No Exam Narrative Exam Narrative: GENERAL: Mild acute distress SKIN: Focused skin assessment warm/dry. HEAD: Atraumatic. Normocephalic. EYES: Pupils equal and round. No scleral icterus. No injection or drainage. ENT: No nasal bleeding or discharge. Mucous membranes pink and moist. NECK: Trachea midline. No JVD. CARDIOVASCULAR: Tacycardic. No murmur appreciated. RESPIRATORY: Scattered wheezing. Breath sounds equal bilaterally. GASTROINTESTINAL: Abdomen soft, non-tender, nondistended. Hepatic and splenic margins not palpable. MUSCULOSKELETAL: No obvious deformities. No clubbing. No cyanosis. No edema. NEUROLOGICAL: Awake and alert. No obvious cranial nerve deficits. Motor grossly within normal limits. Normal speech. PSYCHIATRIC: Appropriate mood and affect; insight and judgment normal. Course Initial Documented Vital Signs Temperature 99.5 F 09/21/18 11:55 Pulse Rate 117 H 09/21/18 11:55 Respiratory Rate 20 09/21/18 11:55 Blood Pressure 150/69 H 09/21/18 11:55 Pulse Oximetry 95 09/21/18 11:55 Last Documented Vital Signs Temperature 98.3 F 09/22/18 04:00 Pulse Rate 95 H 09/22/18 04:00 Respiratory Rate 17 09/22/18 04:00 Blood Pressure 132/79 09/22/18 04:00 Pulse Oximetry 96 09/22/18 04:00 Critical Care Time Critical Care Time: Yes Total Critical Care Time: 30 Attestation: Aggregate critical care time was 30 minutes. Time to perform other separately billable procedures was not included in the critical care time. My time did not include minutes spent treating any other patients simultaneously or on activities that did not directly contribute to the patient's treatment. The services I provided to this patient were to treat and/or prevent clinically significant deterioration that could result in: , decompensation, deterioration I provided critical care services requiring my management, as noted below: Chart data review, documentation time, medication orders and management, vital sign assessments/reviewing monitor data, ordering and reviewing lab tests, ordering and interpreting/reviewing x-rays and diagnostic studies, care of the patient and discussion of the patient with the admitting physicians. Medical Decision Making MDM Narrative Medical decision making narrative: During the course of the patients emergency department visit, the patients history, examination, and differential diagnosis were reviewed with the patient. The patient was placed on a telemetry monitor with oximetry and frequent blood pressure monitoring. The patient had an IV access obtained and blood work sent for analysis. The patient was initially provided IVF Patient is wheezing on exam, will administer steroids as well as neb treatments. He is also tachycardic, IV fluids were ordered. If tachycardia does not resolve, patient will require further workup including a VQ scan as well as a Doppler ultrasound of his lower extremities as he does have history of a DVT -reports that he has not been on anticoagulation for years as he cannot afford the medications. Patient will be moved to a treatment bed 18. [id number]*-reevaluated patient breathing treatment is in progress. He is speaking in complete sentences he states he has been just kind of weak and having some shortness of breath over the past couple weeks he does smoke, he does have a productive greenish yellow cough per patient. And aware that we will reevaluate once breathing treatment is done and all results are in he is awake alert oriented he verbalized understanding and is okay with this. 1500-breathing treatment is in progress patient does remain tachycardic due to the albuterol treatment. He denies any chest pain, back pain, jaw pain, left arm pain, epigastric pain, dizziness, etc. 1630-reevaluated patient he is in bed sleeping, he is in no respiratory distress and states improvement since breathing tx. we are still pending VQ scan and ultrasound of legs. I did have a chance to review his EKG which is showing a rate of 111 with some nonspecific T wave abnormalities. It was reviewed by Dr. galaviz. 174-patient's ultrasound venous Doppler lower extremities showing in the right leg there is a nonocclusive thrombus in the common femoral vein the femoral popliteal peroneal and posterior tibial veins are patent. Right iliac vein is patent. Left leg with normal compression of deep venous system from the inguinal region to the proximal calf no clot is noted normal response of the venous system to augmentation and respiration. Final conclusion is a nonocclusive thrombus in the common femoral vein on the right. The lung ventilation and perfusion scan is showing a heterogenous appearance to the ventilation examination with deposition of the central airway suggestion of poor inspiratory effort there are no focal ventilatory defects. It does show the perfusion lung scan with a homogenous pattern of uptake in both lungs no segmental or subsegmental defects are seen no mismatch photo spenser defects observed to suggest acute pulmonary emboli. Lab work showing white blood cell count at 14.2, there is no anemia, mild decrease in platelets at 144, elevation of neutrophils at 89.4, CMP with no concerning abnormalities, troponin is negative, urinalysis is essentially negative of any acute findings. I did place a call to [facility] due to the nonocclusive thrombus in the fact that the patient is still showing fairly significant expiratory wheezing even though he has had DuoNeb and Solu-Medrol injections. I like to get him admitted for COPD exacerbation I did order IV Zithromax and another DuoNeb. 1840-I spoke with [facility] physician who agreed to admit patient as an observation status. I explained this to the patient several times as well as the family. Patient is allergic to aspirin which is why I did not administer any while he is in the emergency department, however I did add a PTINR lab to the blood in lab and did do 1 dose of weight based lovenox sq. Patient is stable for admission as observation status with diagnosis of COPD exacerbation and nonocclusive thrombus in the common femoral vein on the right leg. 1930- Pt showing seizure activity, depakote level ordered, iv ativan administered, admitting physician called by RUFINA Mendosa. Medical Screen Exam Complete: Yes Emergency Medical Condition: Yes Differential Diagnosis Differential Diagnosis: Pneumonia, influenza, PE, ACS, arrhythmia, electrolyte abnormality, viral syndrome Lab Data Lab results reviewed: Yes I reviewed the patient's lab results. Result diagrams: 09/21/18 14:10 09/21/18 14:10 Lab Results 09/21/18 09/21/18 09/21/18 Range/Units 14:10 14:10 14:10 WBC 14.2 H (4.0-11.0) th/mm3 RBC 4.60 (4.50-5.90) mil/mm3 Hgb 14.7 (13.0-17.0) gm/dL Hct 43.5 (39.0-51.0) % MCV 94.6 (80.0-100.0) fL MCH 32.0 (27.0-34.0) pg MCHC 33.8 (32.0-36.0) % RDW 13.9 (11.6-17.2) % Plt Count 144 L (150-450) th/mm3 MPV 9.4 (7.0-11.0) fL Neut % (Auto) 89.4 H (16.0-70.0) % Lymph % (Auto) 4.2 L (9.0-44.0) % [place] % (Auto) 6.1 (0.0-8.0) % Eos % (Auto) 0.1 (0.0-4.0) % Baso % (Auto) 0.2 (0.0-2.0) % Neut # (Auto) 12.7 H (1.8-7.7) th/mm3 Lymph # (Auto) 0.6 L (1.0-4.8) th/mm3 [place] # (Auto) 0.9 (0.0-0.9) th/mm3 Eos # (Auto) 0.0 (0.0-0.4) th/mm3 Baso # (Auto) 0.0 (0.0-0.2) th/mm3 WBC Differential . Differential Comment Auto diff final PT (9.8-11.6) sec INR Ratio Sodium 139 (136-145) meq/L Potassium 3.5 (3.5-5.1) meq/L Chloride 104 (98-107) meq/L Carbon Dioxide 25.9 (21.0-32.0) meq/L Anion Gap 9 (5-15) meq/L BUN 15 (7-18) mg/dL Creatinine 1.10 (0.60-1.30) mg/dL Estimated GFR 70 L (>89) mL/min Random Glucose 83 (74-106) mg/dL Calcium 8.7 (8.5-10.1) mg/dL Total Bilirubin 0.8 (0.2-1.0) mg/dL AST 12 L (15-37) U/L ALT 17 (12-78) U/L Alkaline Phosphatase 64 (45-117) U/L Troponin I Less than 0.02 L (0.02-0.05) ng/mL Total Protein 7.8 (6.4-8.2) g/dL Albumin 3.5 (3.4-5.0) g/dL Urine Color (Yellw/Straw) Urine Clarity (Clear) Urine pH (5.0-8.5) Ur Specific [place] (1.002-1.035) Urine Protein (Neg-Trace) mg/dL Urine Glucose (UA) (Negative) mg/dL Urine Ketones (Negative) mg/dL Urine Occult Blood (Negative) Urine Nitrate (Negative) Urine Bilirubin (Negative) Urine Ictotest (Negative) Urine Urobilinogen (Less than 2) mg/dL Ur Leukocyte Esterase (Negative) Urine WBC (0-5) /hpf Ur Squamous Epith Cells (0-5) /hpf Urine Mucus (Occasional) /lpf Micro UA Comment Ur Microscopic Review Urine Culture Comments Valproic Acid (50-100) mcg/mL 09/21/18 09/21/18 09/21/18 Range/Units 14:10 15:00 19:15 WBC (4.0-11.0) th/mm3 RBC (4.50-5.90) mil/mm3 Hgb (13.0-17.0) gm/dL Hct (39.0-51.0) % MCV (80.0-100.0) fL MCH (27.0-34.0) pg MCHC (32.0-36.0) % RDW (11.6-17.2) % Plt Count (150-450) th/mm3 MPV (7.0-11.0) fL Neut % (Auto) (16.0-70.0) % Lymph % (Auto) (9.0-44.0) % [place] % (Auto) (0.0-8.0) % Eos % (Auto) (0.0-4.0) % Baso % (Auto) (0.0-2.0) % Neut # (Auto) (1.8-7.7) th/mm3 Lymph # (Auto) (1.0-4.8) th/mm3 [place] # (Auto) (0.0-0.9) th/mm3 Eos # (Auto) (0.0-0.4) th/mm3 Baso # (Auto) (0.0-0.2) th/mm3 WBC Differential Differential Comment PT 11.0 (9.8-11.6) sec INR 1.1 Ratio Sodium (136-145) meq/L Potassium (3.5-5.1) meq/L Chloride (98-107) meq/L Carbon Dioxide (21.0-32.0) meq/L Anion Gap (5-15) meq/L BUN (7-18) mg/dL Creatinine (0.60-1.30) mg/dL Estimated GFR (>89) mL/min Random Glucose (74-106) mg/dL Calcium (8.5-10.1) mg/dL Total Bilirubin (0.2-1.0) mg/dL AST (15-37) U/L ALT (12-78) U/L Alkaline Phosphatase (45-117) U/L Troponin I (0.02-0.05) ng/mL Total Protein (6.4-8.2) g/dL Albumin (3.4-5.0) g/dL Urine Color [place] (Yellw/Straw) Urine Clarity Hazy H (Clear) Urine pH 5.0 (5.0-8.5) Ur Specific [place] 1.036 H (1.002-1.035) Urine Protein 100 H (Neg-Trace) mg/dL Urine Glucose (UA) Negative (Negative) mg/dL Urine Ketones Negative (Negative) mg/dL Urine Occult Blood Negative (Negative) Urine Nitrate Negative (Negative) Urine Bilirubin Negative (Negative) Urine Ictotest Negative (Negative) Urine Urobilinogen 1.0 (Less than 2) mg/dL Ur Leukocyte Esterase Negative (Negative) Urine WBC 2 (0-5) /hpf Ur Squamous Epith Cells 1 (0-5) /hpf Urine Mucus Many H (Occasional) /lpf Micro UA Comment Culture not ind Ur Microscopic Review Not Reportable Urine Culture Comments Culture not ind Valproic Acid 29 L (50-100) mcg/mL Imaging Data Radiologist's impression: Chest X-Ray 09/21/18 13:44 CONCLUSION: No acute cardiopulmonary disease. There is no evidence of pneumonia. Pulmonary Perfusion Imaging 09/21/18 16:17 CONCLUSION: 1. No mismatch photopenia defects observed to suggest acute pulmonary emboli. Venous Doppler Study 09/21/18 16:17 CONCLUSION: 1. Nonocclusive thrombus common femoral vein on the right. Discharge Plan Discharge Disposition Patient Disposition: Sign Out(ED Internal Use Only) Discharge Condition Condition: Stable Discharge Order Discharge Orders: AMA Discharge (Routine); Ordered 09/22/18 Ordered By: Shaylee Calero ED Use Only Admit Order (Routine); Ordered 09/21/18 Ordered By: Lilian David Discharge Details Diagnosis: COPD exacerbation, Femoral vein thrombosis, right Physicians Team ED Provider: Lashanda Galaviz ED Midlevel Provider: Lilian David Primary Care Provider: Primary Care Radha Jauregui Attending Provider: Anselmo Emmanuel ED Status: Left Department Discharge Information Discharge Date/Time: 09/21/18 20:48
[2018-09-21 14:24] LABS: Baso % (Auto) 0.2 % (0.0-2.0); Eos % (Auto) 0.1 % (0.0-4.0); Hematocrit 43.5 % (39.0-51.0); Hemoglobin 14.7 gm/dL (13.0-17.0); Lymph # (Auto) 0.6 th/mm3 (1.0-4.8); Lymph % (Auto) 4.2 % (9.0-44.0); Mean Corpuscular HGB Conc 33.8 % (32.0-36.0); Mean Corpuscular Volume 94.6 fL (80.0-100.0); Mean Platelet Volume 9.4 fL (7.0-11.0); Mono # (Auto) 0.9 th/mm3 (0.0-0.9); Mono % (Auto) 6.1 % (0.0-8.0); Neut # (Auto) 12.7 th/mm3 (1.8-7.7); Neut % (Auto) 89.4 % (16.0-70.0); Platelet Count 144 th/mm3 (150-450); Red Cell Distribution Width 13.9 % (11.6-17.2); White Blood Count 14.2 th/mm3 (4.0-11.0)
[2018-09-21] MEDS: Sod Chloride 0.9% Inj 1,000 ML IV.SIG SCH ×2 (14:37→15:53)
[2018-09-21 14:43] LABS: Albumin 3.5 g/dL (3.4-5.0); Anion Gap 9 meq/L (5-15); Aspartate Aminotransferase 12 U/L (15-37); Blood Urea Nitrogen 15 mg/dL (7-18); Calcium 8.7 mg/dL (8.5-10.1); Carbon Dioxide 25.9 meq/L (21.0-32.0); Chloride 104 meq/L (98-107); Glomerular Filtration Rate 70 mL/min (>89); Glucose,Random 83 mg/dL (74-106); Potassium 3.5 meq/L (3.5-5.1); Sodium 139 meq/L (136-145)
[2018-09-21 14:44] LABS: Alanine Aminotransferase 17 U/L (12-78)
[2018-09-21 14:46] LABS: Alkaline Phosphatase 64 U/L (45-117); Total Protein 7.8 g/dL (6.4-8.2)
--- NOTE | 2018-09-21 15:22 | XR ---
EXAM DATE: 09/21/2018 3:14 PM EST AGE/SEX: 53 years / Male INDICATIONS: Cough and leg weakness. CLINICAL DATA: This is the patient's initial encounter. Patient reports that signs and symptoms have been present for 1 day and indicates a pain score of 0/10. MEDICAL/SURGICAL HISTORY: . Cerebrovascular disease. Hypertension. Seizures. None. COMPARISON: [facility] [place], CHEST 1V SINGLE AP, 07/27/2018. . FINDINGS: A single AP view of the chest demonstrates the lungs to be symmetrically aerated without evidence of mass, infiltrate or effusion. The cardiomediastinal contours are unremarkable. Osseous structures a re intact. CONCLUSION: No acute cardiopulmonary disease. There is no evidence of pneumonia. Electronically signed by: Anselmo Tesfaye MD Board Certified Radiologist 09/21/2018 3:21 PM EST
[2018-09-21 15:31] LABS: Clarity,Urine Hazy (Clear); Color,Urine Amber (Yellw/Straw); Glucose,Urine (UA) Negative (Negative); Leukocyte Esterase,Urine Negative (Negative); Mucus,Urine Many /lpf (Occasional); Nitrite,Urine Negative (Negative); Specific Gravity,Urine 1.036 (1.002-1.035); Squamous Epithelial Cell,Urine 1 /hpf (0-5)
[2018-09-21 15:37] LABS: Bilirubin,Urine Negative (Negative); Ictotest,Urine Negative (Negative)
--- NOTE | 2018-09-21 17:48 | US ---
EXAM DATE: 09/21/2018 5:43 PM EST AGE/SEX: 53 years / Male INDICATIONS: Bilateral leg selling. CLINICAL DATA: This is the patient's initial encounter. Patient reports that signs and symptoms have been present for 1 day and indicates a pain score of 7/10. MEDICAL/SURGICAL HISTORY: Deep venous thrombosis. Seizures. Hypertension. Heart attack. Stro ke. . Left hip surgery. COMPARISON: No prior exams available for comparison. TECHNIQUE: Venous ultrasound of both lower extremities was performed from the inguinal ligament to t he proximal calf. Real-time, color Doppler and spectral tracing, compression and augmentation techni ques were used. FINDINGS: Right Leg: There is nonocclusive thrombus in the common femoral vein. The femoral, popliteal, perone al and posterior tibial veins are patent. Right iliac vein is patent. Left Leg: Normal compression of the deep venous system from the inguinal region to the proximal calf . No echogenic clot is seen. Normal response of the venous system to augmentation and respiration. Other: Left inguinal adenopathy is seen. CONCLUSION: 1. Nonocclusive thrombus common femoral vein on the right. Electronically signed by: Gopal Moser MD Board Certified Radiologist 09/21/2018 5:47 PM EST
--- NOTE | 2018-09-21 18:25 | NM ---
EXAM DATE: 09/21/2018 6:17 PM EST AGE/SEX: 53 years / Male INDICATIONS: Short of breath. CLINICAL DATA: This is the patient's initial encounter. Patient reports that signs and symptoms have been present for 1 day and indicates a pain score of 1/10. MEDICAL/SURGICAL HISTORY: Deep venous thrombosis. Myocardial infarction. Hypertension. Seizu res, Stroke. . Hip Surgery. COMPARISON: [facility], CHEST 1V SINGLE AP, 09/21/2018. . DOSE: 1.5 mCi Tc99m DTPA aerosol 8.8 mCi Tc99m MAA IV TECHNIQUE: Following five minutes of tidal breathing of DTPA aerosol, planar images of the lungs wer e performed in eight projections. The patient was then injected with MAA, and eight-view perfusion s can was performed. FINDINGS: There is a heterogeneous appearance to the ventilation examination with deposition of the central air ways suggesting poor inspiratory effort. No photopenic defects observed.. No focal ventilatory defec ts are seen. The perfusion lung scan demonstrates a homogenous pattern of uptake in both lungs. No segmental or s ubsegmental defects are seen. CONCLUSION: 1. No mismatch photopenia defects observed to suggest acute pulmonary emboli. Electronically signed by: Nehemiah Ordoñez MD Board Certified Radiologist 09/21/2018 6:23 PM EST
[2018-09-21] MEDS ORDERED: Azithromycin Inj 500 MG in Sodium Chlor 0.9% Inj 250 ML IV.SIG ONE (18:40)
[2018-09-21] MEDS ORDERED: Enoxaparin Inj 100 MG/ML Syringe SQ ONE (18:59)
--- NOTE | 2018-09-21 19:35 | ECG ---
Date Performed: 09/21/2018 Time Performed: 16:12:52 PTAGE: 53 years EKG: SINUS TACHYCARDIA WITH FIRST DEGREE AV BLOCK POSSIBLE LEFT ATRIAL ENLARGEMENT BORDERLINE LE FT AXIS DEVIATION NONSPECIFIC ST & T-WAVE ABNORMALITY ABNORMAL ECG Since PREVIOUS TRACING , no significant change noted PREVIOUS TRACIN07/27/2018 22.07 DOCTOR: Keira Canseco Interpretating Date/Time 09/21/2018 19:34:07
[2018-09-21 20:06] LABS: INR 1.1 Ratio
[2018-09-22] MEDS ORDERED: Sodium Chloride 0.9% 2 ML Flush PRN IV.FLUSH (01:10)
--- NOTE | 2018-09-22 03:29 | P.HPIM ---
History of Present Illness Primary Care Physician: No Primary Care Physician 53-year-old male with a past medical history significant for seizure disorder, COPD and hypertension presents to the emergency department for the evaluation of shortness of breath. The patient reports his symptoms started approximately 2 days ago. He denies any associated cough. He states he has had subjective fevers and chills. No chest pain. No abdominal pain. No nausea/vomiting/ diarrhea. No focal neurologic deficits. Inpatient Certification Inpatient Certification: I certify that the inpatient services were ordered in accordance with Medicare regulations governing the order. This includes certification that hospital inpatient services are reasonable and necessary and in the case of services not specified as inpatient-only under 42 CFR 419.22(n), that they are appropriately provided as inpatient services in accordance to with the 2-midnight benchmark under 43 CFR 412.3(e) Estimated Total Length of Stay (Days): 3 Plans for Post Hospital Care: Not yet determined Review of Systems Review of Systems: all other systems reviewed are negative [facility] Medical History Medical History DVT (deep venous thrombosis) (Acute) Heart attack (Acute) Hypertension (Acute) Seizures (Acute) Stroke (Acute) Surgical History Surgical History History of hip surgery (Acute) Family History Family History Other Diabetes mellitus Social History Social History Substance History: Unable to Obtain Second Hand Smoke Exposure: Yes Smoking Status: Unknown if ever smoked Tobacco Type: Cigarettes How Often Do You Have a Drink Containing Alcohol: Unable to Obtain Recent Travel in [facility] within the Last 8 Weeks: No Recent Out of Country Travel within the Last 8 Weeks: No Immunization History Tetanus Immunization: Unsure Medications and Allergies Allergies Allergy/AdvReac Type Severity Reaction Status Date / Time aspirin Allergy Severe Anaphylaxis Verified 08/09/18 00:37 bee venom protein (honey bee) Allergy Severe Anaphylaxis Verified 08/09/18 00:37 Fish Containing Products Allergy Severe Anaphylaxis Verified 08/09/18 00:37 iodine Allergy Severe Anaphylaxis Verified 08/09/18 00:37 penicillin G Allergy Severe Anaphylaxis Verified 08/09/18 00:37 phenobarbital Allergy Severe INCREASED Verified 08/09/18 00:37 SEIZURES potassium iodide Allergy Severe Anaphylaxis Verified 08/09/18 00:37 povidone-iodine Allergy Severe Anaphylaxis Verified 08/09/18 00:37 sodium iodide Allergy Severe Anaphylaxis Verified 08/09/18 00:37 sodium iodide Allergy Severe Anaphylaxis Verified 08/09/18 00:37 *MDRO Multi-Drug Resistant AdvReac Unknown MRSA Uncoded 07/27/18 21:51 Organism Home Medications Medication Instructions Recorded Confirmed Type divalproex [Depakote] 250 mg PO TID 30 Days #0 tab 02/17/18 09/21/18 History furosemide 20 mg PO DAILY 02/17/18 09/21/18 History lisinopril 40 mg PO DAILY 02/17/18 09/21/18 History naproxen 375 mg PO BID 02/17/18 09/21/18 History Active Medications: Active Medications Albuterol (Albuterol Neb (Prn)) 1.25 mg NEB Q2HR NEB PRN PRN Reason: sob Albuterol (Duoneb Neb (Mikey)) 1 ampul NEB Q4HR NEB MIKEY Last Admin: 09/21/18 23:49 Dose: 1 ampul Divalproex Sodium (Depakote Dr) 250 mg PO TID MIKEY Enoxaparin Sodium (Lovenox Inj) 100 mg SQ Q12H MIKEY Furosemide (Lasix) 20 mg PO DAILY MIKEY Lisinopril (Prinivil) 40 mg PO DAILY MIKEY Lorazepam (Ativan Inj) 2 mg IV.PUSH Q10M PRN PRN Reason: SEE LABEL COMMENTS Methylprednisolone Sodium Succinate (Solumedrol Inj) 40 mg IV.PUSH Q8HR MIKEY Sodium Chloride (Ns Flush) 2 ml IV.FLUSH BID MIKEY Sodium Chloride (Ns Flush) 2 ml IV.FLUSH PRN PRN PRN Reason: FLUSH AFTER USING IV ACCESS Physical Exam Vital signs: Vital Signs 09/21/18 11:55 09/21/18 13:53 09/21/18 13:59 Temperature 99.5 F Pulse Rate 117 H 115 H 114 H Respiratory Rate 20 24 24 Blood Pressure 150/69 H Pulse Oximetry 95 09/21/18 17:39 09/21/18 18:47 09/21/18 19:23 Temperature Pulse Rate 98 H 98 H 98 H Respiratory Rate 20 22 22 Blood Pressure 147/74 H Pulse Oximetry 97 09/21/18 19:55 09/21/18 21:05 09/21/18 23:51 Temperature Pulse Rate 110 H 109 H 106 H Respiratory Rate 18 20 Blood Pressure 140/74 118/68 Pulse Oximetry 100 94 L 09/22/18 00:56 Temperature 98.0 F Pulse Rate 99 H Respiratory Rate 18 Blood Pressure 123/64 Pulse Oximetry 94 L Intake & Output 09/21/18 09/21/18 09/22/18 06:59 18:59 06:59 Intake Total 1999 250 / 250 Balance 1999 250 / 250 Weight 113.398 kg Intake: IV 1999 250 / 250 Azithromycin Inj 500 MG In NS 250 / 250 Inj 250 ML @ 250 mls/hr IV.SIG ONCE ONE Rx#:[id number] NS Inj 1,000 ML @ 2000 mls/hr 1999 IV.SIG Q30M [facility] Rx#:[id number] Narrative: Gen.: No acute distress Head: Normocephalic. Atraumatic. EENT: Pupils equal round and reactive to light. Nose without drainage. Airway intact. Throat without injection. Cardiovascular: Regular rate and rhythm. No murmurs, rubs or gallops. Respiratory: Lungs clear to auscultation bilaterally. No wheezes or rhonchi. Abdomen: Soft, nontender, nondistended. No peritoneal signs. Musculoskeletal: No gross deformities. No edema. Skin: No obvious rashes or erythema. Neuro: Sensory and motor grossly intact. Cranial nerves II through XII grossly intact. Results Labs CBC & Chem 7: 09/21/18 14:10 09/21/18 14:10 Imaging Impressions Chest X-Ray 09/21/18 13:44 CONCLUSION: No acute cardiopulmonary disease. There is no evidence of pneumonia. Pulmonary Perfusion Imaging 09/21/18 16:17 CONCLUSION: 1. No mismatch photopenia defects observed to suggest acute pulmonary emboli. Venous Doppler Study 09/21/18 16:17 CONCLUSION: 1. Nonocclusive thrombus common femoral vein on the right. Caprini VTE Risk Assessment Caprini VTE Risk Assessment: No/Low Risk (score <= 1) Caprini Risk Assessment Model: Point Value = 1 Point Value = 2 Point Value = 3 Point Value = 5 Age 41-60 Minor surgery BMI > 25 kg/m2 Swollen legs Varicose veins or History of unexplained or recurrent spontaneous Oral contraceptives or hormone replacement Sepsis (< 1 month) Serious lung disease, including pneumonia (< 1 month) Abnormal pulmonary function Acute myocardial infarction Congestive heart failure (< 1 month) History of inflammatory bowel disease Medical patient at bed rest Age 61-74 Arthroscopic surgery Major open surgery (> 45 min) Laparoscopic surgery (> 45 min) Malignancy Confined to bed (> 72 hours) Immobilizing plaster cast Central venous access Age >= 75 History of VTE Family history of VTE Factor V Leiden Prothrombin [id number] Lupus anticoagulant Anticardiolipin antibodies Elevated serum homocysteine Heparin-induced thrombocytopenia Other congenital or acquired thrombophilia Stroke (< 1 month) Elective arthroplasty Hip, pelvis, or leg fracture Acute spinal cord injury (< 1 month) Prophylaxis Regimen: Total Risk Factor Score Risk Level Prophylaxis Regimen 0-1 Low Early ambulation 2 Moderate Order ONE of the following: *Sequential Compression Device (SCD) *Heparin 5000 units SQ BID 3-4 Higher Order ONE of the following medications: *Heparin 5000 units SQ TID *Enoxaparin/Lovenox 40 mg SQ daily (WT < 150 kg, CrCl > 30 mL/min) *Enoxaparin/Lovenox 30 mg SQ daily (WT < 150 kg, CrCl > 10-29 mL/min) *Enoxaparin/Lovenox 30 mg SQ BID (WT < 150 kg, CrCl > 30 mL/min) AND/OR *Sequential Compression Device (SCD) 5 or more Highest Order ONE of the following medications: *Heparin 5000 units SQ TID (Preferred with Epidurals) *Enoxaparin/Lovenox 40 mg SQ daily (WT < 150 kg, CrCl > 30 mL/min) *Enoxaparin/Lovenox 30 mg SQ daily (WT < 150 kg, CrCl > 10-29 mL/min) *Enoxaparin/Lovenox 30 mg SQ BID (WT < 150 kg, CrCl > 30 mL/min) AND *Sequential Compression Device (SCD) Assessment and Plan Plan Assessment/plan: 1. COPD exacerbation Chest x-ray negative for acute process VQ scan negative for mismatch Steroids Duo nebs Supplemental oxygen as needed 2. DVT Lower extremity ultrasound significant for a nonocclusive thrombus of the right common femoral vein Therapeutic Lovenox 3. Seizure disorder Continue home Depakote 4. Hypertension Continue home medications FEN Heart healthy diet Electrolytes: Monitor and replete as needed Lovenox
[2018-09-22 04:55] VITALS: BP 132/79; PULSE 95; RESP 17; TEMP 98.3; O2SAT 96
[2018-09-22] MEDS ORDERED: MethylPREDNISolone Sod Succinate Inj 40 MG/ML Vial IV.PUSH SCH (06:00)
[2018-09-22] MEDS ORDERED: Enoxaparin Inj 100 MG/ML Syringe SQ SCH (08:00)
[2018-09-22] MEDS ORDERED: Sodium Chloride 0.9% 2 ML Flush BID IV.FLUSH SCH (09:00)
[2018-09-22] MEDS ORDERED: Furosemide 40 MG Tablet PO SCH (09:00)
[2018-09-22] MEDS ORDERED: Lisinopril 20 MG Tablet PO SCH (09:00)
[2018-09-22] MEDS ORDERED: Divalproex 250 MG DR Tablet PO SCH (09:00)
== END 2018-09-22 06:46 | disposition left against medical advice (07) | DRG 191 ==
LOC: NEPB 11:34 → NEDA 11:34 → NEPGCP 20:50
PROVIDERS: ADMIT Hospitalist; ATTEND Hospitalist
CPT/HCPCS: 71010; 71045; 78582; 80053; 80164; 81001; 84484; 85025; 85610; 87275; 87276; 87804; 90761; 90774; 90784; 93005; 93970; 94640; 94664; 94665; 96361; 96374; 99291; A9519; A9540; A9567; C1094; C8952; J0456; J1650; J2060; J2930; J7030; J7050